=== PATIENT | female | born 1985 | race Caucasian/White ===

== ENCOUNTER 2016-09-06 03:18 | Day surgery (SDC) | payer BC, OTHER ==
[2016-09-06] MEDS ORDERED: PROMETHAZINE HCL 25 MG/ML AMPUL IM ONE (05:57)
[2016-09-06] MEDS ORDERED: NALBUPHINE HCL 20 MG/ML AMPUL IV ONE (06:02)
[2016-09-06] MEDS ORDERED: PROMETHAZINE HCL 25 MG/ML AMPUL ONE (06:17)
[2016-09-06] MEDS ORDERED: NALBUPHINE HCL 20 MG/ML AMPUL ONE (06:17)
[2016-09-06 06:23] LABS: Hematocrit 36.8 % (37.0-47.0); Hemoglobin 12.1 gm/dL (12.5-16.0); Mean Cell Volume 81.8 fl (78-100); Mean Corpuscular Hemoglobin 26.9 pg (27-31); Mean Corpuscular Hgb Conc 32.9 g/dl (32-36); Mean Platelet Volume 9.7 fl (6.0-9.5); Neutrophil # 3.6 K/mm3 (1.3-6.0); Neutrophil % 52.3 % (42-75.0); Platelet Count 262 K/mm3 (150-450); Red Cell Distribution Width 14.5 % (11.5-14.0); White Blood Count 6.9 K/mm3 (4.0-10.5)
[2016-09-06 06:37] LABS: Albumin * 4.2 gm/dl (3.4-5.0); Anion Gap 12.3 mmol/L (6.8-13.8); BUN/Creatinine Ratio 12.9 (9.0-21.6); Bilirubin, Total 0.4 mg/dL (0.0-1.1); Ca. Corrected For Albumin 9.1 mg/dL (8.4-10.2); Calcium * 9.6 mg/dL (7.9-10.9); Potassium 3.3 mmol/L (3.4-4.6); Total Protein 8.3 gm/dL (6.2-8.2)
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
[2016-09-06] MEDS ORDERED: RINGERS SOLUTION,LACTATED 1,000 ML IV ONE ×3 (08:20→10:10)
--- OUTSIDE RECORDS SUMMARY | 2016-09-06 08:38 | XMS REPORT | Summary of Care ---
:[address] [facility] Address [address] [place] [address] Care Team Providers Name Role Phone Gumaro Pitt Primary Care Physician Encounter Date(s): 07/13/16 - 07/13/16 [facility], [address] [place], [place] [address] Discharge Disposition: 01 Discharged to Home or Self Care Attending Physician: Bhavani Tavares DO Referring Physician: Bhavani Tavares DO Vital Signs Most recent to oldest [Reference Range]: 1 Peripheral Pulse Rate [60-100 bpm] 81 bpm (07/13/16 1:16 PM) Blood Pressure [90-130/60-90 mmHg] 124/79mmHg (07/13/16 1:16 PM) Mean Arterial Pressure, Cuff 94 mmHg (07/13/16 1:16 PM) Most recent to oldest [Reference Range]: 1 Height/Length Measured 160 cm (07/13/16 1:16 PM) Weight Dosing 85.90 kg1 (07/13/16 1:23 PM) Weight Measured 85.9 kg (07/13/16 1:16 PM) BSA Measured 1.89 m2 (07/13/16 1:16 PM) Body Mass Index Measured 33.55 kg/m2 (07/13/16 1:16 PM) 1Result Comment: This result was because the dosing weight was either not entered or it is>30 days old. This result is based off: Weight Measured July 13, 2016 13:16:00 LEAD RECREATION ASSISTANT by Fabiola Merritt Overlock Sleeve Setter Problem List Condition Effective Dates Status Health Status Informant Chronic female pelvic Active pain(Confirmed) Depression(Confirmed) Active (Confirmed) < 2006 Resolved (Confirmed) 08/13/12 - 2013 Resolved (Confirmed) 08/13/06 - 2007 Resolved (Confirmed) 08/13/082009 Resolved PTSD (post-traumatic stress Active disorder)(Confirmed) Allergies, Adverse Reactions, Alerts Substance Reaction Severity Status gabapentin hives Severe Active ketamine Feel funny Active NSAIDs Hives Active Toradol Itching Active traMADol hives Severe Active Medications ALPRAZolam 0.5 mg oral tablet 1 tab(s), Oral, TID, PRN as needed for anxiety, Start Date: 07/10/16 11:37:00 LEAD RECREATION ASSISTANT Start Date: 07/10/16 Status: OrderedFLUoxetine 20 mg oral capsule 3 cap(s), Oral, qAM, Start Date: 06/04/16 17:41:00 LEAD RECREATION ASSISTANT Start Date: 06/04/16 Status: Orderedhydrocodone-acetaminophen 5mg-325mg oral tablet 1 tab(s), Oral, q4hr, X 5 days, # 15 tab(s), 0 Refill(s), Start Date: 07/10/16 12:26:00 LEAD RECREATION ASSISTANT Start Date: 07/10/16 Stop Date: 07/15/16 Status: OrderedhydrOXYzine pamoate 50 mg oral capsule 1 cap(s), Oral, TID, PRN as needed for anxiety, Start Date: 06/04/16 17:41:00 LEAD RECREATION ASSISTANT Start Date: 06/04/16 Status: Orderedibuprofen 800 mg oral tablet 1 tab(s), Oral, TID, scheduled dose, Start Date: 06/04/16 17:41:00 LEAD RECREATION ASSISTANT Special Instructions: scheduled dose Start Date: 06/04/16 Status: OrderedKeppra 500 mg oral tablet 1 tab(s), Oral, BID, # 60 tab(s), 0 Refill(s), Start Date: 06/04/16 17:36:00 LEAD RECREATION ASSISTANT Start Date: 06/04/16 Status: OrderedLyrica 150 mg oral capsule 1 cap(s), Oral, BID, Start Date: 06/04/16 17:41:00 LEAD RECREATION ASSISTANT Start Date: 06/04/16 Status: OrderedOLANZapine 15 mg oral tablet 1 tab(s), Oral, Daily, Start Date: 06/04/16 17:41:00 LEAD RECREATION ASSISTANT Start Date: 06/04/16 Status: OrderedoxyCODONE Oral, 0 Refill(s), Start Date: 07/13/16 13:38:00 LEAD RECREATION ASSISTANT Start Date: 07/13/16 Status: Orderedzolpidem 10 mg oral tablet 1 tab(s), Oral, HS, PRN for sleep, Start Date: 06/04/16 17:41:00 LEAD RECREATION ASSISTANT Start Date: 06/04/16 Status: Ordered Results No data available for this section Immunizations No data available for this section Procedures Procedure Date Related Diagnosis Body Site Miscellaneous operations1 06/2014 Appendectomy 05/2014 section 2013 Tonsillectomy 2011 section 2009 section 2007 1Scar tissue removal Social History No data available for this section Assessment and Plan No data available for this section
--- OUTSIDE RECORDS SUMMARY | 2016-09-06 08:38 | XMS REPORT | Continuity of Care Document ---
:1985 Author Organization [facility] ([facility]) Address [address] [place] [address] Phone [phone] Care Team Providers Name Role Phone Gumaro Pitt Primary Care Provider [phone] Source Comments This disclosure is being made pursuant to the Care Everywhere program, applicable federal and state laws, and may not contain all informaitonavailable regarding this patient.[facility] ([facility]) Active Allergies and Adverse Reactions Allergen Noted Date Severity Reactions Comments Gabapentin 03/08/2015 Rash Ibuprofen 03/08/2016 Rash Ketamine 03/08/2016 OTHER "Freaks Out" Ketorolac 03/08/2016 OTHER Burning sensation Tramadol 06/27/2015 Urticaria (Hives) Current Medications Prescription Sig. Disp. Refills Start Date End Date Status zolpiDEM (AMBIEN) 10 Take 10 mg by Active mg tablet mouth at bedtime. pregabalin (LYRICA) Take 300 mg by Active 300 mg capsule mouth 2 times daily. cetirizine 10 mg Take 10 mg by 03/06/2016 Active tablet mouth at bedtime. FLUoxetine 20 mg Take 60 mg by 03/06/2016 Active capsule mouth daily. LORazepam 1 mg tablet Take 1 mg by mouth 03/06/2016 Active 3 times daily. polyethylene glycol Take 17 g by mouth 03/06/2016 Active 3350 17 gram packet daily. dextroamphetamine-amp Take 1 tablet (20 60 tablet 0 03/12/2016 Active hetamine 20 mg tablet mg total) by mouth every morning and at noon. oxyCODONE-acetaminoph Take 1 tablet by 180 tablet 0 03/13/2016 Active en 5-325 mg per mouth every 4 tablet hours as needed. pain mupirocin 2 % Apply topically 2 30 g 0 03/16/2016 Active ointment times daily. zinc oxide 20 % Apply topically as 56 g 0 03/16/2016 Active ointment needed. ALPRAZolam 0.5 mg XR TK 1 T PO BID PRN 1 07/13/2016 Active tablet Active Problems Problem Noted Date Borderline personality disorder 03/08/2016 Moderate episode of recurrent major depressive disorder 02/28/2016 Terminal ileitis without complication 10/21/2015 Lower abdominal pain 10/21/2015 Anemia 10/21/2015 Seizure 07/01/2015 Pelvic pain 03/08/2015 Chronic constipation 09/29/2014 Pelvic adhesive disease 09/27/2014 PTSD (post-traumatic stress disorder) 06/05/2014 ADHD (attention deficit hyperactivity disorder), combined type 06/05/2014 Chronic pain 01/21/2014 Hx of section x3 01/04/2014 Resolved Problems Problem Noted Date Resolved Date Flank pain 01/10/2014 08/31/2014 Hydroureter, right 01/04/2014 01/21/2014 endometritis 01/03/2014 01/06/2014 Leukocytosis 01/03/2014 01/21/2014 Status post 01/03/2014 08/31/2014 Most Recent Encounters Date Type Specialty Providers Description 07/16/2016 - Hospital Encounter Emergency Medicine Bharathi Benavides Dx: Cellulitis of 07/17/2016 MD Nubia right foot (Primary Dx) 07/16/2016 Office Visit Gynecology Yari Gunter Dx: Non-intractable DO vomiting without nausea, unspecified vomiting type (Primary Dx) 07/16/2016 Pharmacy Visit 07/10/2016 Telephone Gynecology Sarmiento, Kayli Ascencio MD Chief Comp: Patient Concern 07/09/2016 Hospital Encounter Emergency Medicine Dx: Syncope and collapse (Primary Dx) 07/09/2016 Telephone Gynecology Sarmiento, Kayli Ascencio MD Chief Comp: Patient Concern Immunizations Name Dates Previously Given Next Due Influenza, quadrivalent PF 03/09/2015 Social History Tobacco Use Types Packs/Day Years Used Date Former Smoker Cigarettes 0.25 2 Smokeless Tobacco: Never Used Tobacco Cessation:Counseling Given: Yes Comments: Alcohol Use Drinks/Week oz/Week Comments Yes 0 Standard drinks or equivalent 0.0 rarely Last Filed Vital Signs Vital Sign Reading Time Taken Blood Pressure 128/96 07/16/2016 6:16 PM SPAR CAP BEVELER Pulse 104 07/16/2016 6:16 PM SPAR CAP BEVELER Temperature 36.5 C (97.7 F) 07/16/2016 6:16 PM SPAR CAP BEVELER Respiratory Rate 16 07/16/2016 6:16 PM SPAR CAP BEVELER Height 1.6 m (5' 3") 10/21/2015 4:49 AM CDT Weight 83 kg (182 lb 15.7 oz) 07/16/2016 4:22 PM SPAR CAP BEVELER Body Mass Index 32.42 07/16/2016 4:22 PM SPAR CAP BEVELER Oxygen Saturation 100% 07/16/2016 6:16 PM SPAR CAP BEVELER Plan of Care Date Type Specialty Providers Description 10/03/2016 Appointment Gynecology Karla Adams MD Chief Comp: Patient [address] [place] [address] [phone] (Fax) Health Maintenance Due Date Last Done Comments Hepatitis B Vaccine (1 of 3 - Primary Series) 1985 Tdap Vaccine 09/05/1998 Cervical Cancer Screening 09/05/2005 Lipid Disorder Screening 09/05/2005 MMR Vaccine 09/05/2005 Td Vaccine 09/05/2005 Varicella Vaccine (1 of 2 - Adult - No Evidence of 09/05/2005 Immunity) Influenza Vaccine: Seasonal (Season Ended) 2016 03/09/2015 Results from Last 3 Months MICROSCOPIC URINALYSIS (07/16/2016 11:36 PM) Component Value Range White Blood Cells, Urine 1 0-5 /HPF Red Blood Cells, Urine 4(H) 0-2 /HPF Bacteria, Urine Rare(A) /HPF Squamous Epithelial Cells, Urine 394(H) <=10 /LPF Calcium Oxalate Crystals, Urine 1 <5 /HPF Mucous-Urine Many(A) None, Rare Amorphous Sediment-Urine Few(A) None, Rare Specimen Urine URINALYSIS WITH REFLEX CULTURE (07/16/2016 11:36 PM) Component Value Range Color, Urine Straw Straw, Pale Yellow, Yellow, Clear, None Clarity, Urine Cloudy(A) Clear pH, Urine 6.0 <9.0 Spec [place], Urine 1.025 1.000-1.030 Glucose, Urine Negative Negative Blood, Urine Negative Negative Ketones, Urine 2+(A) Negative Protein, Urine 1+(A) Negative Urobilinogen, Urine 1+(A) Normal Bilirubin, Urine Negative Negative Leukocyte Esterase, Urine Negative Negative Nitrite, Urine Negative Negative Specimen Urine URINALYSIS WITH REFLEXED CULTURE AND MICROSCOPIC EXAM (07/16/2016 11:36 PM) Specimen Culture - Urine, Midstream clean catch Narrative The following orders were created for panel order URINALYSIS WITH REFLEXED CULTURE AND MICROSCOPIC EXAM. Procedure Abnormality Status --------- ------ URINALYSIS WITH REFLEX C...[[id number]]AbnormalFinal result MICROSCOPIC URINALYSIS[[id number]] Abnormal Final result URINE CULTURE, REFLEXED[[id number]] Please view results for these tests on the individual orders. DIFFERENTIAL (07/16/2016 8:26 PM)Only the most recent of2 resultswithin the time period is included. Component Value Range % Neutrophils-Auto Diff 67.5 % Neutrophils-Auto Diff 6870 6829-4048 /MM3 % Lymphocytes-Auto Diff 23.1 % Lymphocytes-Auto Diff 2350 875-3300 /MM3 % Monocytes-Auto Diff 7.3 % Monocytes-Auto Diff 740 130-860 /MM3 % Eosinophils-Auto Diff 1.3 % Eosinophils-Auto Diff 130 40-390 /MM3 % Basophils 0.4 % Basophils-Auto Diff 40 10-136 /MM3 % Immature Granulocytes-Auto Diff 0.4 % Immature Granulocytes-Auto Diff 40 /MM3 Specimen Whole Blood CBC (COMPLETE BLOOD COUNT) (07/16/2016 8:26 PM)Only the most recent of2 resultswithin the time period is included. Component Value Range WBC Count 10.2 3.7-10.5 K/MM3 RBC Count 4.29 4.00-5.20 M/MM3 Hemoglobin 11.3(L) 11.9-15.5 g/dL Hematocrit 34(L) 35-47 % MCV (Mean Corpuscular Volume) 79(L) 82-99 FL MCH (Mean Corpuscular Hemoglobin) 26 25-35 PG MCHC (Mean Corpuscular Hemoglobin Concentration) 33 32-36 % Platelet Count 270 150-400 K/MM3 MPV (Mean Platelet Volume) 9.6 9.4-12.3 FL RBC Dist Width-STD 36.9 36.4-46.3 FL RBC Distrib Width 13.2 9.0-14.5 % Nucleated RBC 0 /100 WBC Specimen Whole Blood BASIC METABOLIC PANEL W/ CALCIUM (CHEM 8) (07/16/2016 8:26 PM) Component Value Range Sodium 142 135-145 mEq/L Potassium 3.1(L) 3.5-5.0 mEq/L Chloride 102 95-107 mEq/L CO2 26 22-29 mEq/L Anion Gap 14 8-18 mEq/L BUN 6(L) 10-20 mg/dL Creatinine 0.7Comment: 0.5-1.0 mg/dL Creatinine switched to enzymatic method on 09/26/2010.GFR equation switched to IDMS-traceable MDRD equation on 09/26/2010. Calculated GFR values are not valid in clinical settings where serum creatinine is changing. Glucose 106(H)Comment: 65-99 mg/dL The Expert Committee on the Diagnosis and Classification of Diabetes has defined impaired fasting glucose as greater than or equal to 100 mg/dL but less than 126 mg/dL.(Diabetes Care 28 (Suppl 1)S41,2005) Calcium 9.8 8.5-10.5 mg/dL Calculated GFR >90 >60 mL/min/1.73 m2 Specimen Blood CBC WITH DIFFERENTIAL (07/16/2016 8:26 PM)Only the most recent of2 resultswithin the time period is included. Specimen Whole Blood Narrative The following orders were created for panel order CBC WITH DIFFERENTIAL. Procedure Abnormality Status --------- ------ CBC (COMPLETE BLOOD COUNT)[[id number]] AbnormalFinal result DIFFERENTIAL[[id number]] Final result Please view results for these tests on the individual orders. TUBULAR PRODUCTS FABRICATOR ULTRASOUND (07/09/2016 7:12 PM) Narrative Gynecology Report Referral from: [facility], [id number] PATIENT INFORMATION: Name: MARISSA ANSARI#: [id number] Age:30 y/oExam Date: 07/09/2016 :1985 Location: After hours TUBULAR PRODUCTS FABRICATOR LMP:Not Available Approach:Transvaginal. INDICATION:Pelvic pain. Rule out fibroid, ovarian cyst or torsion. UTERUS Uterus:Non gravid.Size:L-89mm W-36mm H -60mm Vol:101mL. Position: Retroflexed. Anomalies: Arcuate. Pathology: No. ENDOMETRIUM Double Thickness:4.5mm. Texture: Hyperechoic. CERVIX Cervix:Visualized. Appearance:Appears normal. OVARIES Ovaries: Left: Appears normal. L-32mm W-29mm H-25mm Vol:11.9mL Right: Appears normal. L-23mm W -20mm H-20mm Vol:4.67mL Left Findings: Follicle. Right Findings:Follicle. Left Impression: Normal. Right Impression:Hemorrhagic cyst. CUL DE SAC Cul de Sac Fluid:Not Seen. COMMENTS: The uterus is retroflexed, normal in size and arcuate in shape with no myomas. The edometrium is hyperechoic and thin with a small amount of fluid noted within the cavity. The right ovary is unremarkable with appropriate blood flow and a probable hemorrhagic corpus luteum measuring 16 x 13 mm. The left ovary is unremarkable with appropriate blood flow noted. There is no free fluid in the cul de sac. Dr. Zaida Huff MD ([id number]) Mixer Blender: Yashira Shah RDMS, RVT Procedure Note Ever, Incoming Imaging Results - SatJul 11, 2016 1:44 PM SPAR CAP BEVELER Gynecology Report Referral from: [place] [address] PATIENT INFORMATION: Name: MARISSA DE DIOS MR#: [id number] Age: 30 y/o Exam Date: 07/09/2016 : 1985 Location: After hours TUBULAR PRODUCTS FABRICATOR LMP: Not Available Approach: Transvaginal. INDICATION: Pelvic pain. Rule out fibroid, ovarian cyst or torsion. UTERUS Uterus: Non gravid. Size: L-89mm W-36mm H-60mmVol:101mL. Position: Retroflexed. Anomalies: Arcuate. Pathology: No. ENDOMETRIUM Double Thickness: 4.5mm. Texture: Hyperechoic. CERVIX Cervix: Visualized. Appearance: Appears normal. OVARIES Ovaries: Left: Appears normal. L-32mm W-29mm H-25mm Vol:11.9mL Right: Appears normal. L-23mm W-20mm H-20mm Vol:4.67mL Left Findings: Follicle. Right Findings: Follicle. Left Impression: Normal. Right Impression: Hemorrhagic cyst. CUL DE SAC Cul de Sac Fluid: Not Seen. COMMENTS: The uterus is retroflexed, normal in size and arcuate in shape with no myomas. The edometrium is hyperechoic and thin with a small amount of fluid noted within the cavity. The right ovary is unremarkable with appropriate blood flow and a probable hemorrhagic corpus luteum measuring 16 x 13 mm. The left ovary is unremarkable with appropriate blood flow noted. There is no free fluid in the cul de sac. Dr. Zaida Huff MD ([id number]) Mixer Blender: Yashira Shah RDMS, RVT NEISSERIA GONORRHOEAE PCR (07/09/2016 6:23 PM) Component Value Range Gonorrhea PCR Negative Negative Specimen Other - Endocervical Narrative Test methodology:PCR amplification; CT/NG Assay ([employer]) CHLAMYDIA TRACHOMATIS DETECTION BY PCR (07/09/2016 6:23 PM) Component Value Range Chlamydia Trach PCR Negative Negative Specimen Other - Endocervical Narrative Test methodology:PCR amplification; CT/NG Assay ([employer]) VAGINOSIS/VAGINITIS PANEL (TRICHOMONAS, YEAST AND GARDNERELLA) (07/09/2016 6: 23 PM) Component Value Range Trichomonas vaginalis Not Detected Not Detected, Indeterminate [place] species Not Detected Not Detected, Indeterminate Gardnerella vaginalis Detected(A) Not Detected, Indeterminate Specimen Vaginal - Vagina THC-URINE SCREEN (07/09/2016 5:14 PM) Component Value Range THC, Urine NegativeComment: Negative Test-cut off:50 ng/mL Drug of abuse screening tests are to be used for medical purposes only and not for non-medical purposes (e.g., employee or forensic testing). Specimen Urine DRUGS OF ABUSE - URINE (07/09/2016 5:14 PM) Component Value Range Amphetamines, Urine NegativeComment: Negative Test cut-off: 1000 ng/mL for d-methamphetamine. Benzodiazepine, Urine Presumptive Positive(A)Comment: Negative Test cut-off:100 ng/mL Cocaine, Urine NegativeComment: Negative Test cut-off:300 ng/mL Opiate, Urine NegativeComment: Negative Test cut-off:300 ng/mL for morphine Oxycodone, Urine NegativeComment: Negative Test cut-off:300 ng/mL Amphetamines assay cross-reacts well with amphetamine and methamphetamine, as well as the "toy designer" amphetamines MDMA ("Ecstasy"), MDA, MDEA ("Daphney"), and MBDB. Labetalol may also produce false positi ves due to cross-reactivity of a metabolite.The amphetamines assay has little or no cross-reactivity with ephedrine, pseudoephedrine, phentermine, and methylphenidate. Opiates assay has low cross-reac tivity for buprenorphine, fentanyl, meperidine, methadone, oxycodone, and propoxyphene (all have cut-offs greater than 75,000 ng/mL). Please see Laboratory Services Handbook ([email or web address]_ [email or web address].[email or web address].html) for more detailed information on assay cross-reactivity. Drug of abuse screening tests are to be used for medical purposes only and not for non-medical purposes (e.g., employee, quality assurance supervisor final, or forensic testing). Specimen Urine KEPPRA (LEVETIRACETAM) DRUG LEVEL (07/09/2016 5:12 PM) Component Value Range Levetiracetam (Keppra) Drug Level <2.0(L) 5.0-30.0 g/mL Specimen Blood LACTIC ACID, WHOLE BLOOD ([facility]) (07/09/2016 5:12 PM) Component Value Range Lactic Acid, Whole Blood 1.0Comment: 0.5-2.0 mEq/L Glycolate, the principle toxic metabolite of ethylene glycol, can cause artifactual elevation of measured lactate. Specimen Whole Blood HCG - , SERUM, QUANTITATIVE (07/09/2016 5:12 PM) Component Value Range Screen, Quantitative, Blood <2Comment: mIU/mL This assay recognizes the intact HCG "holo-hormone" produced in but may not recognize other forms of HCG (e.g., "nicked HCG") produced in other conditions such as tumors of the germs cells, ovaries, bladder, pancreas, stomach, lungs, and liver. QUANTITATIVE HCG Weeks of gestation Expected range mIU/mL 3 weeks5 - 72 4 weeks 10 - 708 5 [id number] - 8, 245 6 - 32, 177 7 weeks 4,059 - 153, 767 8 weeks31,366 - 149, 094 9 weeks59,109 - 135, 901 10 weeks 44,186 - 170, 409 12 weeks 27,107 - 201, 165 14 weeks 24,302 - 93,646 15 weeks 12,540 - 69,747 16 weeks 8,904 - 55, 332 17 weeks 8,240 - 51, 793 18 weeks 9,649 - 55, 271 Non- females:< 3 mIU/mL Males: < 2 mIU/mL Healthy non- gerda-menopausal and post-menopausal females may have HCG values up to 8 mIU/mL.Heterophile antibodies present in the serum of some patients may cause a false positive result in this assay. Specimen Blood ETHANOL, PLASMA (07/09/2016 5:12 PM) Component Value Range Ethanol 0Comment: mg/dL Reference range: None detected. Ethanol intoxication typically begins in the 50-100 mg/dL range. Critical value: >300 mg/dL. Ethanol values less than 10 mg/dL cannot be distinguished from zero. Specimen Blood PTT (PARTIAL THROMBOPLASTIN TIME) (07/09/2016 5:12 PM) Component Value Range PTT 24 22-31 secs Specimen Blood PT/INR (PROTHROMBIN TIME/INR) VENOUS (07/09/2016 5:12 PM) Component Value Range PT (Prothrombin Time) 11 9-12 secs INR 1.1 <4.0 Specimen Blood THYROID STIMULATING HORMONE (TSH), WITH REFLEX FREE T-4 (07/09/2016 5:12 PM) Component Value Range TSH, Reflex 2.18 0.27-4.20 IU/mL Specimen Blood COMPREHENSIVE METABOLIC PANEL (CMP) (07/09/2016 5:12 PM) Component Value Range Sodium 144 135-145 mEq/L Potassium 3.4(L) 3.5-5.0 mEq/L Chloride 103 95-107 mEq/L CO2 28 22-29 mEq/L Anion Gap 13 8-18 mEq/L BUN 8(L) 10-20 mg/dL Creatinine 0.9Comment: 0.5-1.0 mg/dL Creatinine switched to enzymatic method on 09/26/2010.GFR equation switched to IDMS-traceable MDRD equation on 09/26/2010. Calculated GFR values are not valid in clinical settings where serum creatinine is changing. Glucose 88Comment: 65-99 mg/dL The Expert Committee on the Diagnosis and Classification of Diabetes has defined impaired fasting glucose as greater than or equal to 100 mg/dL but less than 126 mg/dL.(Diabetes Care 28 (Suppl 1)S41,2005) Calcium 9.4 8.5-10.5 mg/dL Total Protein 7.7 6.0-8.0 g/dL Albumin 4.4 3.4-4.8 g/dL AST 16Comment: 0-32 U/L Adult reference ranges updated on 04/14/13 at 830am ALP 98 35-104 U/L Bilirubin Total 0.4 <=1.2 mg/dL ALT 14Comment: 0-33 U/L The upper limit of normal for alanine aminotransferase (ALT) reference ranges for adults is controversial with some authorities recommending limit as low as 30 U/L for males and 19 U/L for females. Th ere is increased incidence of subclinical liver disease (e.g., early steatohepatitis) in patients with ALT values in the range of 31-41 U/L for males and 20-33 U/L for females. ALT values should alway s be interpreted in conjunction with clinical history, physical examination findings, and, if applicable, data from other diagnostic tests. Calculated GFR 75 >60 mL/min/1.73 m2 Specimen Blood MAGNESIUM (07/09/2016 5:12 PM) Component Value Range Magnesium 2.2 1.5-2.9 mg/dL Specimen Blood BLOOD BANK SAMPLE HOLD (07/09/2016 5:12 PM) Component Value Range Blood Bank Sample Hold Hold Specimen Specimen Blood, unspecified source ECG - EKG 12 LEAD (07/09/2016 3:30 PM) Component Value Range ECG SEVERITY - BORDERLINE ECG - VENT. RATE 78 bpm RR 769 ms P-R INTERVAL 180 ms QRSD INTERVAL 82 ms QT INTERVAL 376 ms QTC INTERVAL 429 ms P AXIS 31 degrees QRS AXIS 42 degrees T WAVE AXIS 27 degrees REPORT SINUS RHYTHM BORDERLINE T ABNORMALITIES, ANTERIOR LEADS Interpreting Physician: Ramesh Herring MD
--- OUTSIDE RECORDS SUMMARY | 2016-09-06 08:39 | XMS REPORT | Summary of Care ---
:1985 Author Organization [facility] Address [address] [place] [address]- Care Team Providers Name Role Phone uGmaro Pitt Primary Care Physician Encounter Date(s): 06/11/16 - 06/11/[address] [address] Discharge Disposition: 01 Discharged to Home or Self Care Attending Physician: Leland Talley DO Admitting Physician: Leland Talley DO Vital Signs No data available for this section Problem List No data available for this section Allergies, Adverse Reactions, Alerts Substance Reaction Severity Status gabapentin hives Severe Active traMADol hives Severe Active Medications FLUoxetine 20 mg oral capsule 3 cap(s), Oral, qAM, Start Date: 06/04/16 17:41:00 METAL PATTERNMAKER APPRENTICE Start Date: 06/04/16 Status: OrderedhydrOXYzine pamoate 50 mg oral capsule 1 cap(s), Oral, TID, PRN as needed for anxiety, Start Date: 06/04/16 17:41:00 METAL PATTERNMAKER APPRENTICE Start Date: 06/04/16 Status: Orderedibuprofen 800 mg oral tablet 1 tab(s), Oral, TID, scheduled dose, Start Date: 06/04/16 17:41:00 METAL PATTERNMAKER APPRENTICE Start Date: 06/04/16 Status: OrderedKeppra 500 mg oral tablet 1 tab(s), Oral, BID, # 60 tab(s), 0 Refill(s), Start Date: 06/04/16 17:36:00 METAL PATTERNMAKER APPRENTICE Start Date: 06/04/16 Status: OrderedLyrica 150 mg oral capsule 1 cap(s), Oral, BID, Start Date: 06/04/16 17:41:00 METAL PATTERNMAKER APPRENTICE Start Date: 06/04/16 Status: OrderedOLANZapine 15 mg oral tablet 1 tab(s), Oral, Daily, Start Date: 06/04/16 17:41:00 METAL PATTERNMAKER APPRENTICE Start Date: 06/04/16 Status: Orderedzolpidem 10 mg oral tablet 1 tab(s), Oral, HS, PRN for sleep, Start Date: 06/04/16 17:41:00 METAL PATTERNMAKER APPRENTICE Start Date: 06/04/16 Status: Ordered Results No data available for this section Immunizations No data available for this section Procedures No data available for this section Social History No data available for this section Assessment and Plan No data available for this section
--- OUTSIDE RECORDS SUMMARY | 2016-09-06 08:39 | XMS REPORT | Continuity of Care Document ---
:1985 Author [employer] [facility] [place] [address] Phone [phone] Care Team Providers Name Role Phone YoandyGumaro Primary Care Provider [phone] Active Allergies and Adverse Reactions Allergen Noted Date Severity Reactions Comments Gabapentin 02/06/2016 Hives Toradol 02/06/2016 High burning Tramadol 02/06/2016 Hives Current Medications Always verify current medications with the patient because some medications mayno longer be current as of this document. Prescription Sig. Disp. Refills Start Date End Date Status oxyCODONE-acetaminophe Take 1 Tab by mouth 28 Each 0 03/06/2016 Active n (PERCOCET) 5-325 MG every 6 hours as per tablet needed. Indications: moderate to severe pain acetaminophen Take 2 Tabs by mouth 30 Tab 0 03/06/2016 Active (TYLENOL) 325 MG every 6 hours as tablet needed. Indications: Fever, Pain LORazepam (ATIVAN) 1 Take 1 Tab by mouth 21 Each 0 03/06/2016 Active MG tablet 3 times daily as needed for Anxiety. Indications: moderate to severe anxiety pregabalin (LYRICA) 75 Take 4 Caps by mouth 56 Cap 0 03/06/2016 Active MG capsule 2 times daily. Indications: Neuropathic Pain FLUoxetine (PROZAC) 20 Take 3 Caps by mouth 90 Cap 0 03/06/2016 Active MG capsule daily. Indications: Depression cetirizine (ZYRTEC) 10 Take 1 Tab by mouth 30 Tab 12 03/06/2016 Active MG tablet nightly. Indications: Skin Reaction, Hives diphenhydrAMINE Take 1 Tab by mouth 30 Tab 0 03/06/2016 Active (BENADRYL) 25 MG every 6 hours as tablet needed for Itching. Indications: Mild Uncomplicated Hives, Itching bacitracin ointment topically thin layer 1 Tube 0 03/06/2016 Active bid for superficial skin infection Indications: skin infection mineral topically bid to dry 03/06/2016 Active oil-hydrophilic skin as needed petrolatum (AQUAPHOR) ointment zolpidem (AMBIEN) 10 Take 1 Tab by mouth 30 Each 0 03/06/2016 Active MG tablet nightly. Indications: Trouble Sleeping polyethylene glycol Take 17 g by mouth 0 03/06/2016 Active (GLYCOLAX) packet daily. Indications: Constipation amphetamine-dextroamph one po 8am and 1230 60 Tab 0 03/06/2016 Active etamine (ADDERALL) 10 pm Indications: MG tablet Attention Deficit Disorder Active Problems Problem Noted Date Major depressive disorder 02/28/2016 PTSD (post-traumatic stress disorder) 02/06/2016 Immunizations Name Dates Previously Given Next Due (3 Years +) Influenza Vacc Quadrivalent Preservative 02/06/2016 Free(PREFILLED / SDV) PPD Test 02/20/2016 Social History Tobacco Use Types Packs/Day Years Used Date Never Assessed Last Filed Vital Signs Vital Sign Reading Time Taken Blood Pressure 110/76 03/06/2016 6:00 AM CDT Pulse 84 03/06/2016 6:00 AM CDT Temperature 36.6 C (97.9 F) 03/06/2016 6:00 AM CDT Respiratory Rate 16 03/06/2016 6:00 AM CDT Height 1.6 m (5' 3") 02/06/2016 2:17 AM CDT Weight 72.757 kg (160 lb 6.4 oz) 03/01/2016 6:00 AM CDT Body Mass Index 28.42 03/01/2016 6:00 AM CDT Oxygen Saturation - - Plan of Care Health Maintenance Due Date Last Done [facility]1 - [facility]ap[facility] 09[facility]05/2006 [facility] Cerv[facility] Scre[facility] 09/05/2008 [facility] Influenza 12/18/2016 02/06/2016 [facility] Zoster (#1) 2047 Results from Last 3 Months Not on file
--- OUTSIDE RECORDS SUMMARY | 2016-09-06 08:39 | XMS REPORT | Summary of Care ---
:1985 Author Organization [facility] Address [address] [place] [address]- Care Team Providers Name Role Phone Gumaro Pitt Primary Care Physician Encounter Date(s): 07/10/16 - 07/10/16 [facility] [address] [place] [address]- [facility] Discharge Diagnosis: Chronic female pelvic pain Discharge Disposition: Discharged to Home or Self Care Attending Physician: Evert Gaitan MD Admitting Physician: Evert Gaitan MD Vital Signs Most recent to oldest 1 2 3 [Reference Range]: Temperature Temporal Artery 37.2 DegC [36.0-38.0 DegC] (07/10/16 10:56 AM) Heart Rate Monitored [60-100 66 bpm 50 bpm 60 bpm bpm] (07/10/16 1:30 PM) *LOW* (07/10/16 12:30 PM) (07/10/16 1:00 PM) Respiratory Rate [12-20 17 br/min 14 br/min 17 br/min br/min] (07/10/16 1:30 PM) (07/10/16 1:00 PM) (07/10/16 12:30 PM) SpO2 [90-100 %] 81 % 93 % 93 % *<LLOW* (07/10/16 1:00 PM) (07/10/16 12:30 PM) (07/10/16 1:30 PM) Blood Pressure [90-130/60-90 127/75mmHg 124/63mmHg 124/63mmHg mmHg] (07/10/16 1:00 PM) (07/10/16 12:30 PM) (07/10/16 12:00 PM) Mean Arterial Pressure 88 mmHg 78 mmHg 78 mmHg Monitor Measure (07/10/16 1:00 PM) (07/10/16 12:30 PM) (07/10/16 12:00 PM) Most recent to oldest [Reference Range]: 1 2 3 Weight Estimated 82 kg (07/10/16 10:56 AM) Weight Dosing 82.00 kg1 (07/10/16 11:00 AM) 1Result Comment: This result was because the dosing weight was either not entered or it is>30 days old. This result is based off: Weight Estimated July 10, 2016 10:56:00 CLOUD SYSTEMS ARCHITECT by Yaneth Villar RN Problem List Condition Effective Dates Status Health Status Informant Chronic female pelvic pain(Confirmed) Active Allergies, Adverse Reactions, Alerts Substance Reaction Severity Status gabapentin hives Severe Active NSAIDs Hives Active traMADol hives Severe Active Medications ALPRAZolam 0.5 mg oral tablet 1 tab(s), Oral, TID, PRN as needed for anxiety, Start Date: 07/10/16 11:37:00 CLOUD SYSTEMS ARCHITECT Start Date: 07/10/16 Status: OrderedFLUoxetine 20 mg oral capsule 3 cap(s), Oral, qAM, Start Date: 06/04/16 17:41:00 CLOUD SYSTEMS ARCHITECT Start Date: 06/04/16 Status: Orderedhydrocodone-acetaminophen 5mg-325mg oral tablet 1 tab(s), Oral, q4hr, X 5 days, # 15 tab(s), 0 Refill(s), Start Date: 07/10/16 12:26:00 CLOUD SYSTEMS ARCHITECT Start Date: 07/10/16 Stop Date: 07/15/16 Status: OrderedhydrOXYzine pamoate 50 mg oral capsule 1 cap(s), Oral, TID, PRN as needed for anxiety, Start Date: 06/04/16 17:41:00 CLOUD SYSTEMS ARCHITECT Start Date: 06/04/16 Status: Orderedibuprofen 800 mg oral tablet 1 tab(s), Oral, TID, scheduled dose, Start Date: 06/04/16 17:41:00 CLOUD SYSTEMS ARCHITECT Special Instructions: scheduled dose Start Date: 06/04/16 Status: OrderedKeppra 500 mg oral tablet 1 tab(s), Oral, BID, # 60 tab(s), 0 Refill(s), Start Date: 06/04/16 17:36:00 CLOUD SYSTEMS ARCHITECT Start Date: 06/04/16 Status: OrderedLyrica 150 mg oral capsule 1 cap(s), Oral, BID, Start Date: 06/04/16 17:41:00 CLOUD SYSTEMS ARCHITECT Start Date: 06/04/16 Status: OrderedOLANZapine 15 mg oral tablet 1 tab(s), Oral, Daily, Start Date: 06/04/16 17:41:00 CLOUD SYSTEMS ARCHITECT Start Date: 06/04/16 Status: Orderedzolpidem 10 mg oral tablet 1 tab(s), Oral, HS, PRN for sleep, Start Date: 06/04/16 17:41:00 CLOUD SYSTEMS ARCHITECT Start Date: 06/04/16 Status: Ordered Results Patient Viewable Results Most recent to oldest [Reference Range]: 1 WBC [4.8-10.8 thou/mm3] 7.6 thou/mm3 (07/10/16 11:55 AM) RBC [4.20-5.40 Mil/mm3] 4.25 Mil/mm3 (07/10/16 11:55 AM) Hgb [12.0-16.0 g/dL] 11.2 g/dL *LOW* (07/10/16 11:55 AM) Hct [37.0-47.0 %] 34.5 % *LOW* (07/10/16 11:55 AM) MCV [80.0-94.0 fL] 81.2 fL (07/10/16 11:55 AM) MCH [25.0-38.0 pg/cell] 26.4 pg/cell (07/10/16 11:55 AM) MCHC [31.0-37.0 g/dL] 32.5 g/dL (07/10/16 11:55 AM) RDW [1.0-48.0 fL] 39.6 fL (07/10/16 11:55 AM) Platelet [130-400 thou/mm3] 260 thou/mm3 (07/10/16 11:55 AM) Neutrophils % Auto [50.0-75.0 %] 61.6 % (07/10/16 11:55 AM) Immature Granulocyte Auto [0.1-2.0 %] 0.3 % (07/10/16 11:55 AM) Lymphocytes % Auto [15.0-41.0 %] 29.7 % (07/10/16 11:55 AM) Monocytes % Auto [2.0-10.0 %] 6.2 % (07/10/16:55 AM) Eosinophils % Auto [0.0-6.0 %] 2.1 % (07/10/16 AM) Basophil % Auto [0.0-1.0 %] 0.1 % (07/10/16 AM) Neutrophils Absolute [1.5-5.9 thou/mm3] 4.7 thou/mm3 (07/10/16 AM) Immature Gran Absolute [0.01-0.03 thou/mm3] 0.02 thou/mm3 (07/10/16:55 AM) Lymphocytes Absolute [1.5-4.0 thou/mm3] 2.3 thou/mm3 (07/10/16 AM) Monocytes Absolute [0.0-0.9 thou/mm3] 0.5 thou/mm3 (07/10/16: AM) Eosinophil Absolute [0.0-0.7 thou/mm3] 0.2 thou/mm3 (07/10/16: AM) Basophil Absolute [0.0-0.2 thou/mm3] 0.0 thou/mm3 (07/10/16 11:55 AM) Sodium Lvl [135-144 mEq/L] 141 mEq/L (07/10/16 AM) Potassium Lvl [3.3-4.8 mEq/L] 3.8 mEq/L (07/10/16: AM) Chloride Lvl [98-107 mEq/L] 103 mEq/L (07/10/16 AM) Bicarbonate Lvl [22-30 mmol/L] 28 mmol/L (07/10/16:55 AM) Anion Gap [10.0-20.0] 13.8 (07/10/16 11:55 AM) Glucose Lvl [70-108 mg/dL] 94 mg/dL (07/10/16 AM) BUN [7-21 mg/dL] 10 mg/dL (07/10/1655 AM) Creatinine Lvl [0.50-1.20 mg/dL] 0.76 mg/dL (07/10/16 11:55 AM) BUN/Creat Ratio 13.2 *NA* (07/10/16 11:55 AM) eGFR AA [>=60] >60 (07/10/16 11:55 AM) eGFR CAPO [>=60] >60 (07/10/16 11:55 AM) Calcium Lvl [8.6-10.2 mg/dL] 8.9 mg/dL (07/10/16 11:55 AM) Total Protein [6.4-8.3 g/dL] 6.6 g/dL (07/10/16 11:55 AM) Albumin Lvl [3.5-5.2 g/dL] 4.2 g/dL (07/10/16 11:55 AM) Globulin 2.4 *NA* (07/10/16 11:55 AM) A/G Ratio [0.9-1.8] 1.8 (07/10/16 11:55 AM) Bilirubin Total [0.1-1.0 mg/dL] 0.3 mg/dL (07/10/16 11:55 AM) Alkaline Phosphatase [39-129 unit/L] 90 unit/L (07/10/16 11:55 AM) AST [0-39 unit/L] 12 unit/L (07/10/16 11:55 AM) ALT [0-40 unit/L] 10 unit/L (07/10/16 11:55 AM) Lactic Acid Lvl [0.5-2.2 mmol/L] 1.1 mmol/L (07/10/16 11:55 AM) UA Color Yellow *NA* (07/10/16 11:59 AM) Urine Clarity Clear *NA* (07/10/16 11:59 AM) Specific [place] [1.000-1.060] 1.020 (07/10/16 11:59 AM) Urine pH [5-8] 6 (07/10/16 11:59 AM) Ketones Negative (07/10/16 11:59 AM) Bilirubin [Negative] Negative (07/10/16 11:59 AM) Urine Protein [Negative] Negative (07/10/16 11:59 AM) Glucose [Negative] Negative (07/10/16 11:59 AM) Urine HGB [Negative] Negative (07/10/16 11:59 AM) Urobilinogen <2.0 *NA* (07/10/16 11:59 AM) Nitrite [Negative] Negative (07/10/16 11:59 AM) Leuk Esterase [Negative] Negative (07/10/16 11:59 AM) UA Ascorbic Acid [Negative] Negative (07/10/16 11:59 AM) Urine WBC [0-5] 0-5 (07/10/16 11:59 AM) Urine RBC [0-2] 0-2 (07/10/16 11:59 AM) Squamous Epi [0-5] 0-5 (07/10/16 11:59 AM) Mucus 3+ *ABN* (07/10/16 11:59 AM) Hyaline Casts 0-2 (07/10/16 11:59 AM) HGC, SERUM QUAL [Negative] Negative (07/10/16 11:55 AM) Serum HCG, Interp. If test result does not correlate with clinical presentation, then either immediate serum quantitative HCG test or repeat qualitative test in forty-eight hours recommended. The test is intended as an aid in diagnosing early . *Unknown* (07/10/16 11:55 AM) Immunizations No data available for this section Procedures No data available for this section Social History No data available for this section Assessment and Plan No data available for this section
--- OUTSIDE RECORDS SUMMARY | 2016-09-06 08:39 | XMS REPORT | Summary of Care ---
:1985 Author Organization [facility] Address [address] [place] [address]- Care Team Providers Name Role Phone Gumaro Pitt Primary Care Physician Encounter Date(s): 06/04/16 - 06/04/[address] [address]- [facility] Discharge Diagnosis: Seizure Discharge Disposition: Discharged to Home or Self Care Attending Physician: Leland Talley DO Admitting Physician: Leland Talley DO Vital Signs Most recent to oldest [Reference Range]: 1 Temperature Temporal Artery [36.0-38.0 DegC] 35.6 DegC *LOW* (06/04/16 5:00 PM) Heart Rate Monitored [60-100 bpm] 98 bpm (06/04/16 5:00 PM) Respiratory Rate [12-20 br/min] 18 br/min (06/04/16 5:00 PM) SpO2 99 % (06/04/16 5:00 PM) Blood Pressure [90-130/60-90 mmHg] 124/80mmHg (06/04/16 5:00 PM) Weight Estimated 77 kg (06/04/16 5:00 PM) Weight Dosing 77.00 kg1 (06/04/16 5:02 PM) 1Result Comment: This result was because the dosing weight was either not entered or it is>30 days old. This result is based off: Weight Estimated June 04, 2016 17:00:00 ENGINEERING LAB TECHNICIAN by Bozena Brand RN Problem List No data available for this section Allergies, Adverse Reactions, Alerts Substance Reaction Severity Status gabapentin hives Severe Active traMADol hives Severe Active Medications FLUoxetine 20 mg oral capsule 3 cap(s), Oral, qAM, Start Date: 06/04/16 17:41:00 ENGINEERING LAB TECHNICIAN Start Date: 06/04/16 Status: OrderedhydrOXYzine pamoate 50 mg oral capsule 1 cap(s), Oral, TID, PRN as needed for anxiety, Start Date: 06/04/16 17:41:00 ENGINEERING LAB TECHNICIAN Start Date: 06/04/16 Status: Orderedibuprofen 800 mg oral tablet 1 tab(s), Oral, TID, scheduled dose, Start Date: 06/04/16 17:41:00 ENGINEERING LAB TECHNICIAN Start Date: 06/04/16 Status: OrderedKeppra 500 mg oral tablet 1 tab(s), Oral, BID, # 60 tab(s), 0 Refill(s), Start Date: 06/04/16 17:36:00 ENGINEERING LAB TECHNICIAN Start Date: 06/04/16 Status: OrderedLyrica 150 mg oral capsule 1 cap(s), Oral, BID, Start Date: 06/04/16 17:41:00 ENGINEERING LAB TECHNICIAN Start Date: 06/04/16 Status: OrderedOLANZapine 15 mg oral tablet 1 tab(s), Oral, Daily, Start Date: 06/04/16 17:41:00 ENGINEERING LAB TECHNICIAN Start Date: 06/04/16 Status: Orderedzolpidem 10 mg oral tablet 1 tab(s), Oral, HS, PRN for sleep, Start Date: 06/04/16 17:41:00 ENGINEERING LAB TECHNICIAN Start Date: 06/04/16 Status: Ordered Results Patient Viewable Results Most recent to oldest [Reference Range]: 1 Urine Amphetamine Scrn Negative (06/04/16 5:34 PM) Urine Barbiturate Scrn Negative (06/04/16 5:34 PM) Urine Benzodiazepine Scrn Negative (06/04/16 5:34 PM) Urine Cannabinoid Met Scrn Negative (06/04/16 5:34 PM) Urine Cocaine Met Scrn Negative (06/04/16 5:34 PM) Urine Methadone Scrn Presumptive Pos1 *ABN* (06/04/16 5:34 PM) Urine Opiate Scrn Negative (06/04/16 5:34 PM) Urine Phencyclidine Scrn Negative (06/04/16 5:34 PM) Urine Propoxyphene Scrn Negative (06/04/16 5:34 PM) Urine [Negative] Negative (06/04/16 5:34 PM) UA HCG, Interp. First morning urine specimen is preferred. If the result does not correlate with clinical presentation, then either immediate serum quantitative HCG test or repeat qualitative test in forty-eight hour s recommended. The test is intended as an aid in diagnosing early . *Unknown* (06/04/16 5:34 PM) 1Result Comment: Verified Results called to and read back by Adeola at 2016 6:34:46 PM ENGINEERING LAB TECHNICIAN by SHELLY, No confirmation requested Immunizations No data available for this section Procedures No data available for this section Social History No data available for this section Assessment and Plan No data available for this section
[2016-09-06 08:45] LABS: Urine Bilirubin Negative (NEGATIVE); Urine Ketone Negative (NEGATIVE); Urine Nitrite Negative (NEGATIVE); Urine Protein 15 mg/dL (NEGATIVE); Urine Specific Gravity 1.015 SP.GR. (1.005-1.010); Urine Urobilinogen Normal (NORMAL)
[2016-09-06 08:56] LABS: Urine Appearance Clear; Urine Bacteria None Seen; Urine Blood 10 /ul (NEGATIVE); Urine Color Yellow; Urine Mucus Few - 1+; Urine RBC None Seen /hpf (0-5); Urine WBC None Seen /hpf (0-5)
--- OUTSIDE RECORDS SUMMARY | 2016-09-06 09:11 | XMS REPORT | Continuity of Care Document ---
:1985 Author Organization [facility] [place] [address] Care Team Providers Name Role Phone Provider, None Per Patient Primary Care Provider Unavailable Source Comments This disclosure is being made pursuant to the Mediam[employer] program and maynot contain all information available regarding this patient.[facility] Active Allergies and Adverse Reactions Allergen Noted Date Severity Reactions Comments No Known Allergies 12/20/2013 Other (See Comments) Current Medications Be aware that medications may not be up to date as of this document. Alwaysverify current medications with the patient. Prescription Sig. Disp. Refills Start Date End Date Status HYDROcodone-acetaminoph Take 2 tablets by Active en (NORCO) 5-325 MG per mouth every 6 tablet (six) hours as needed for Pain. ALPRAZolam (XANAX) 0.25 TAKE 1 TABLET BY 30 tablet 0 04/23/2014 Active MG tablet MOUTH 3 TIMES DAILY NEEDED FOR SLEEP Active Problems Problem Noted Date Supervision of normal subsequent 08/18/2013 Overview: Overview: NEHEMIAS DINERO MD Most Recent Encounters Date Type Specialty Providers Description 08/16/2016 Data Import Social History Tobacco Use Types Packs/Day Years Used Date Never Smoker Alcohol Use Drinks/Week oz/Week Comments No Last Filed Vital Signs Vital Sign Reading Time Taken Blood Pressure 134/82 04/06/2014 2:45 PM SYSTEMS ANALYST ENGINEER Pulse - - Temperature - - Respiratory Rate - - Height 1.6 m (5' 3") 04/06/2014 2:45 PM SYSTEMS ANALYST ENGINEER Weight 68.675 kg (151 lb 6.4 oz) 04/06/2014 2:45 PM SYSTEMS ANALYST ENGINEER Body Mass Index 26.83 04/06/2014 2:45 PM SYSTEMS ANALYST ENGINEER Oxygen Saturation - - Plan of Care Health Maintenance Due Date Last Done Comments Tetanus/Pertussis (1 - Tdap) 09/05/2006 Influenza Immunization (#1) 2016 Pap Smear 08/18/2016 08/18/2013 Results from Last 3 Months Not on file
--- OUTSIDE RECORDS SUMMARY | 2016-09-06 09:11 | XMS REPORT | Continuity of Care Document ---
:1985 Author Organization [facility] Address [address] [place] [address] Phone [phone] Care Team Providers Name Role Phone Gumaro Pitt Primary Care Provider [phone] Source Comments This disclosure is being made pursuant to the Care Everywhere program, applicable federal and state laws, and may not contain all informaitonavailable regarding this patient.[facility] ([facility]) Active Allergies and Adverse Reactions Allergen Noted [...] Taken Blood Pressure 128/96 07/16/2016 6:16 PM SEMICONDUCTOR ASSEMBLER Pulse 104 07/16/2016 6:16 PM SEMICONDUCTOR ASSEMBLER Temperature 36.5 C (97.7 F) 07/16/2016 6:16 PM SEMICONDUCTOR ASSEMBLER Respiratory Rate 16 07/16/2016 6:16 PM SEMICONDUCTOR ASSEMBLER Height 1.6 m (5' 3") 10/21/2015 4:49 AM CDT Weight 83 kg (182 lb 15.7 oz) 07/16/2016 4:22 PM SEMICONDUCTOR ASSEMBLER Body Mass Index 32.42 07/16/2016 4:22 PM SEMICONDUCTOR ASSEMBLER Oxygen Saturation 100% 07/16/2016 6:16 PM SEMICONDUCTOR ASSEMBLER Plan of Care Date Type Specialty Providers Description 10/03/2016 Appointment Gynecology Karla dAams MD Chief Comp: Patient [address] [place] [address] [phone] (Fax) Health Maintenance Due Date Last Done [...] Cloudy(A) Clear pH, Urine 6.0 <9.0 Spec [place], Urine 1.025 1.000-1.030 Glucose, Urine Negative Negative [...] Abnormality Status --------- ------ URINALYSIS WITH REFLEX C...[[id number]]AbnormalFinal result MICROSCOPIC URINALYSIS[[id number]] Abnormal Final result URINE CULTURE, REFLEXED[[id number]] Please view results for these tests on the individual orders. DIFFERENTIAL (07/16/2016 8:26 PM)Only the most recent of2 resultswithin the time period is included. Component Value Range % Neutrophils-Auto Diff 67.5 % Neutrophils-Auto Diff 6870 6575-0090 /MM3 % Lymphocytes-Auto Diff 23.1 % Lymphocytes-Auto [...] Abnormality Status --------- ------ CBC (COMPLETE BLOOD COUNT)[[id number]] AbnormalFinal result DIFFERENTIAL[[id number]] Final result Please view results for these tests on the individual orders. PAPER AND PRINTS RESTORER ULTRASOUND (07/09/2016 7:12 PM) Narrative Gynecology Report Referral from: [facility] [id number] PATIENT INFORMATION: Name: MARISSA ANSARI#: [id number] Age:30 y/oExam Date: 07/09/2016 :1985 Location: After hours PAPER AND PRINTS RESTORER LMP:Not Available Approach:Transvaginal. INDICATION:Pelvic pain. Rule out [...] de sac. Dr. Zaida Huff MD ([id number]) Library Media Technician: Yashira Shah RDMS, RVT Procedure Note Ever, Incoming Imaging Results - SatJul 11, 2016 1:44 PM SEMICONDUCTOR ASSEMBLER Gynecology Report Referral from: [place] [address] PATIENT INFORMATION: Name: MRAISSA DE DIOS MR#: [id number] Age: 30 y/o Exam Date: 07/09/2016 : 1985 Location: After hours PAPER AND PRINTS RESTORER LMP: Not Available Approach: Transvaginal. INDICATION: Pelvic [...] de sac. Dr. Zaida Huff MD ([id number]) Library Media Technician: Yashira Shah RDMS, RVT NEISSERIA GONORRHOEAE PCR [...] amphetamine and methamphetamine, as well as the "mask layout designer" amphetamines MDMA ("Ecstasy"), MDA, MDEA ("Daphney"), and MBDB. Labetalol may also produce false positi ves due to cross-reactivity of a metabolite.The amphetamines assay has little or no cross-reactivity with ephedrine, pseudoephedrine, phentermine, and methylphenidate. Opiates assay has low cross-reac tivity for buprenorphine, fentanyl, meperidine, methadone, oxycodone, and propoxyphene (all have cut-offs greater than 75,000 ng/mL). Please see Laboratory Services Handbook ([email or web address].[email or web address]_ handbook.index.html) for more detailed information on assay cross-reactivity. Drug of abuse screening tests are to be used for medical purposes only and not for non-medical purposes (e.g., employee, front end architect, or forensic testing). Specimen Urine KEPPRA (LEVETIRACETAM) [...] 72 4 weeks 10 - 708 5 - 8, 245 6 [id number] - 32, 177 7 weeks 4,059 - [...]
--- OUTSIDE RECORDS SUMMARY | 2016-09-06 09:12 | XMS REPORT | Continuity of Care Document ---
:1985 Author [facility] [place] [address] Phone [phone] Care Team Providers Name Role Phone YoandyGumaro Primary Care Provider [phone] Active Allergies and Adverse Reactions Allergen Noted [...] Health Maintenance Due Date Last Done Comments [facility] Dtap/Tdap/Td Vaccines (1 - Tdap) 09/05/2006 [facility] Cervical Cancer Screening 09/05/2008 [facility] Influenza 12/18/2016 02/06/2016 [facility] Zoster (#1) 2047 Results from Last 3 Months Not on file
[2016-09-06] MEDS ORDERED: oxyCODONE HCL/ACETAMINOPHEN 1 TAB TABLET PO ONE ×2 (09:42→10:33)
[2016-09-06] MEDS ORDERED: RINGERS SOLUTION,LACTATED 1,000 ML IV PRN (09:42)
[2016-09-06] MEDS ORDERED: IBUPROFEN 800 MG TABLET PO ONE (09:42)
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
[2016-09-06 10:57] LABS: Cocaine Ur Negative (NEGATIVE); Urine Barbiturate Negative (NEGATIVE); Urine PCP Negative (NEGATIVE); Urine THC Negative (NEGATIVE)
[2016-09-06 11:00] LABS: Urine Benzodiazepines Positive (NEGATIVE); Urine Opiates Positive (NEGATIVE)
[2016-09-06 12:27] VITALS: BP 128/79
[2016-09-07 11:41] LABS: Herpes Simplex Type 1 IgG Ab <0.90 index
[2016-09-07 13:25] LABS: Hepatitis C Antibody NON-REACTIVE (NON-REACTIVE); Hepatitis Panel Confirmation DNR
[2016-09-07 13:26] LABS: Hepatitis A IgM Antibody NON-REACTIVE (NON-REACTIVE); Hepatitis B Surface Antigen NON-REACTIVE (NON-REACTIVE); RPR Screen NON-REACTIVE (NON-REACTIVE)
== END 2016-09-06 08:01 | disposition home or self-care (01) ==
LOC: ER 03:18 → AMB 08:00
PROVIDERS: ATTEND Obstetrics & Gynecology
PROC: 0UCG7ZZ Extirpation of Matter from Vagina, Via Natural or Artificial Opening (ICD-10-PCS; principal; 2016-09-06 08:00)
DX: T19.2XXA Foreign body in vulva and vagina, initial encounter (principal); S30.811A Abrasion of abdominal wall, initial encounter; R10.30 Lower abdominal pain, unspecified; X99.8XXA Assault by other sharp object, initial encounter; F41.9 Anxiety disorder, unspecified; F32.9 Major depressive disorder, single episode, unspecified; F17.200 Nicotine dependence, unspecified, uncomplicated; Z68.29 Body mass index [BMI] 29.0-29.9, adult

== ENCOUNTER 2017-04-21 08:32 | Emergency (ER) | payer BC, OTHER ==
[2017-04-21] MEDS ORDERED: NORMAL SALINE 1,000 ML IV ONE ×2 (08:52→10:27)
[2017-04-21] MEDS ORDERED: diphenhydrAMINE HCL 50 MG/ML VIAL IV ONE (08:55)
[2017-04-21] MEDS ORDERED: METOCLOPRAMIDE HCL 5 MG/ML VIAL IV ONE (08:55)
[2017-04-21] MEDS ORDERED: diphenhydrAMINE HCL 50 MG/ML VIAL ONE (09:00)
[2017-04-21] MEDS ORDERED: METOCLOPRAMIDE HCL 5 MG/ML VIAL ONE (09:01)
--- NOTE | 2017-04-21 09:01 | ERNOTE ---
Medical Problem HPI - Narrative Date of Service: 04/21/17 - General Chief Complaint: Nausea/Vomiting Time Seen by Provider: 04/21/17 08:45 Source: patient Exam Limitations: no limitations - Immun/Allergies/Home Medications Immunizations: IMMUNIZATION HX Immunizations Up to Date Yes History of Influenza Vaccine Yes Hx Pneumococcal Vaccination No Allergies/Adverse Reactions: Allergies ketorolac tromethamine [From Toradol] Allergy (Intermediate, Verified 04/21/17 08:46) Itching NSAIDS (Non-Steroidal Anti-Inflamma Allergy (Intermediate, Verified 04/21/17 08: 46) Hives gabapentin [From Neurontin] Allergy (Verified 04/21/17 08:46) ketamine Allergy (Verified 04/21/17 08:46) tramadol Allergy (Verified 04/21/17 08:46) Home Medications: HOME MEDICATIONS ALPRAZolam [Xanax] 0.5 mg PO TID PRN 05/28/15 [Last Taken Unknown] FLUoxetine HCL [Fluoxetine HCl] 60 mg PO DAILY 02/03/16 [Last Taken Unknown] Dextroamphetamine/Amphetamine [Adderall 20 mg Tablet] 20 mg PO BID 09/06/16 [ Last Taken Unknown] Zolpidem Tartrate [Ambien] 10 mg PO HS PRN 09/06/16 [Last Taken Unknown] Lyrica 300 mg PO BID 04/21/17 [Last Taken Unknown] Ondansetron [Zofran Odt] 4 mg PO Q6H PRN #20 tab 04/21/17 [Last Taken Unknown] oxyCODONE HCL/ACETAMINOPHEN [Percocet 10-325 mg Tablet] 1 each PO PRN 04/21/17 [ Last Taken Unknown] - History of Present History Narrative: Patient presents with a variety of problems, she states that she has had diarrhea with nausea and vomiting for approximately a week and that she is having some difficulty taking her medications. She has been off her Keppra for a period of time and started having what she describes as breakthrough partial complex seizures. She feels that she has lost upwards to 20 pounds and complains of chronic pain that she sees a physician and I will say for and takes oxycodone to help control. Timing: intermittent Severity: moderate Review of Systems - Review of Systems Constitutional: Present: See HPI EYE: Present: no symptoms reported ENT: Present: no symptoms reported Respiratory: Present: no symptoms reported Cardiology: Present: no symptoms reported Gastrointestinal/Abdominal: Present: nausea, vomiting, diarrhea Genitourinary: Present: no symptoms reported Musculoskeletal: Present: no symptoms reported Skin: Present: no symptoms reported Neurological: Present: anxiety, emotional problems Endocrine: Present: no symptoms reported Hematologic/Lymphatic: Present: no symptoms reported Psych: Present: no symptoms reported - Patient's Past Medical History Patient History - Medical: ADHD, Anxiety, Chronic Pain, Depression, Other - questionable schizophrenia Patient History - Cardiac/Respiratory: No pertinent hx Patient History - Cancer: No Hx of Cancer Patient History - Surgical Procedures: Appendectomy, , T & A, Other Patient History - Other: None LMP (females 10-50): 1 month - Social History Living Situations: alone Abuse History: No History of abuse Psych History: Hx of Anxiety, Hx of Depression, Hx of Psychiatric Tx, Current tx /ever been on anti-depressants or anti-anxiety meds Smoking Status: Former smoker Have you smoked in the past 12 months: No Do you dip or chew tobacco: No Alcohol Use: none Drug Use: none - Immunizations Immunizations Up to Date: Yes Hx Pneumococcal Vaccination: No History of Influenza Vaccine: Yes Physical Exam - Physical Exam General Appearance: Present: wd/wn, alert, moderate distress Head Exam: Present: normal inspection Eye Exam: Normal inspection: bilateral, PERRL: bilateral Ears, Nose, Throat: Present: normal ENT inspection, H, normal pharynx Neck: Present: normal inspection, nontender Respiratory: Present: no respiratory distress, normal breath sounds, no accessory muscle use, chest nontender, lungs clear Cardiovascular/Chest: Present: regular rate, rhythm, no murmur, normal peripheral pulses Gastrointestinal/Abdominal: Present: normal bowel sounds, nondistended, soft, no organomegaly, tenderness - generalized Rectal Exam: Present: deferred Back Exam: Present: normal inspection, normal range of motion Extremity Exam: Present: normal inspection, non-tender, no edema, normal range of motion Neurological Exam: Present: alert, oriented, normal mood/affect Skin Exam: Present: normal color, warm/dry Lymphatic Exam: Present: no adenopathy ED Progress - Results and Orders Patient's Lab Results:: I have reviewed the patient's lab results. - Vital Signs Patient's Vital Signs:: I have reviewed the patient's vital signs. Vital Signs: Vital Signs 04/21/17 08:37 Temperature 36.5 C Pulse Rate 95 Respiratory 16 Rate Blood Pressure 165/99 O2 Sat by Pulse 99 Oximetry - Progress/Reassessment Chief Complaint: Nausea/Vomiting Progress:: Improved Plan - Plan Plan: Patient states she is confused as to how the cocaine, amphetamines, benzodiazepines and marijuana got into her system. She states she will try to be much more careful with who she associates with as this could be the cause of her not feeling well. Departure Clinical Impression: Substance abuse - Departure Disposition: Home self-care Condition: Good Instructions: Stimulant Use Disorder-Cocaine, Stimulant Use Disorder- Methamphetamines, Finding Treatment for Addiction Referrals: Gumaro Pitt MD [Primary Care Provider] - Prescriptions: Ondansetron [Zofran Odt] 4 mg PO Q6H PRN #20 tab PRN Reason: Nausea And Vomiting
[2017-04-21 09:07] LABS: Hematocrit 35.3 % (37.0-47.0); Hemoglobin 11.6 gm/dL (12.5-16.0); Mean Cell Volume 78.4 fl (78-100); Mean Corpuscular Hemoglobin 25.8 pg (27-31); Mean Corpuscular Hgb Conc 32.9 g/dl (32-36); Mean Platelet Volume 9.6 fl (6.0-9.5); Neutrophil # 5.4 K/mm3 (1.3-6.0); Neutrophil % 60.6 % (42-75.0); Platelet Count 313 K/mm3 (150-450); Red Cell Distribution Width 13.8 % (11.5-14.0); White Blood Count 8.9 K/mm3 (4.0-10.5)
[2017-04-21 09:20] LABS: Albumin * 4.4 gm/dl (3.4-5.0); Anion Gap 17.2 mmol/L (6.8-13.8); BUN/Creatinine Ratio 12.2 (9.0-21.6); Bilirubin, Total 0.8 mg/dL (0.0-1.1); Ca. Corrected For Albumin 8.6 mg/dL (8.4-10.2); Calcium * 9.2 mg/dL (7.9-10.9); Carbon Dioxide 23.8 mmol/L (24-32.6); Magnesium 2.1 mg/dL (1.2-2.8); Total Protein 8.6 gm/dL (6.2-8.2)
[2017-04-21 09:57] LABS: Urine Bilirubin 1 mg/dl (NEGATIVE); Urine Ketone Large mg/dL (NEGATIVE); Urine Nitrite Negative (NEGATIVE); Urine Specific Gravity 1.025 SP.GR. (1.005-1.010); Urine Urobilinogen Normal (NORMAL); Urine pH 6.5 pH (5.0-7.0)
[2017-04-21 10:00] LABS: Urine Blood 5 /ul (NEGATIVE)
[2017-04-21 10:01] LABS: Urine Appearance Clear; Urine Bacteria TRACE; Urine Color Yellow; Urine Protein 15 mg/dL (NEGATIVE); Urine RBC 0-5 /hpf (0-5); Urine WBC 0-5 /hpf (0-5)
[2017-04-21 10:11] LABS: Cocaine Ur Positive (NEGATIVE); Urine Barbiturate Negative (NEGATIVE); Urine Benzodiazepines Positive (NEGATIVE); Urine Opiates Negative (NEGATIVE); Urine PCP Negative (NEGATIVE); Urine THC Positive (NEGATIVE)
[2017-04-21] MEDS ORDERED: chlorproMAZINE HCL 20 MG in NORMAL SALINE 50 ML IV ONE (10:33)
[2017-04-21 10:58] VITALS: BP 139/74
[2017-04-21] MEDS ORDERED: ACETAMINOPHEN 325 MG TABLET PO ONE (11:15)
[2017-04-21] MEDS ORDERED: ACETAMINOPHEN 325 MG TABLET ONE (11:16)
== END 2017-04-21 11:48 | disposition home or self-care (01) ==
LOC: ER 08:32
DX: F19.10 Other psychoactive substance abuse, uncomplicated (principal); Z87.891 Personal history of nicotine dependence; F41.9 Anxiety disorder, unspecified; F90.9 Attention-deficit hyperactivity disorder, unspecified type
CPT/HCPCS: 36415; 80053; 80307; 81001; 83735; 85025; 96365; 96367; 96375; 99284; G0481

== ENCOUNTER 2019-06-15 04:39 | Inpatient (IN) ==
[2019-06-15 05:48] LABS: Hematocrit 27.2 % (37.0-47.0); Hemoglobin 8.8 gm/dL (12.5-16.0); Mean Cell Volume 79.5 fl (78-100); Mean Corpuscular Hemoglobin 25.7 pg (27-31); Mean Corpuscular Hgb Conc 32.4 g/dl (32-36); Mean Platelet Volume 9.2 fl (8-12.5); Neutrophil # 10.6 K/mm3 (1.3-6.0); Neutrophil % 72.2 % (42-75.0); Platelet Count 308 K/mm3 (150-450); Red Blood Count 3.42 M/mm3 (4.2-5.4); Red Cell Distribution Width 13.6 % (11.5-14.0); White Blood Count 14.6 K/mm3 (4.0-10.5)
[2019-06-15 05:51] LABS: Prothrombin Time (Patient) 9.8 Seconds (9.1-10.7)
[2019-06-15 05:52] LABS: INR 0.99 INR (0.92-1.08); Partial Thrombolplastin Time 22.8 Seconds (24-32)
[2019-06-15 07:27] LABS: Albumin * 2.6 gm/dl (3.4-5.0); Anion Gap 15.2 mmol/L (6.8-13.8); BUN/Creatinine Ratio 8.6 (9.0-21.6); Bilirubin, Total 0.3 mg/dL (0.0-1.1); Calcium * 8.2 mg/dL (7.9-10.9); Carbon Dioxide 23.6 mmol/L (24-32.6); Potassium 2.8 mmol/L (3.4-4.6); Total Protein 6.2 gm/dL (6.2-8.2)
[2019-06-15 08:05] LABS: Random Urine Total Protein 37.6 mg/dL (0-12)
[2019-06-15 08:20] LABS: Cocaine Ur Negative (NEGATIVE); Urine Barbiturate Negative (NEGATIVE); Urine Benzodiazepines Positive (NEGATIVE); Urine Opiates Positive (NEGATIVE); Urine PCP Negative (NEGATIVE); Urine THC Negative (NEGATIVE)
[2019-06-15] MEDS ORDERED: BETAMETHASONE ACETATE,SOD PHOS 6 MG/ML VIAL IM ONE (08:55)
[2019-06-15] MEDS: RINGER'S SOLUTION,LACTATED 1,000 ML IV PRN ×2 (09:15→10:15)
[2019-06-15] MEDS ORDERED: LIDOCAINE HCL 20 ML VIAL ONE (09:21)
[2019-06-15] MEDS ORDERED: NORMAL SALINE 20 ML VIAL ONE (09:21)
[2019-06-15] MEDS ORDERED: BUPIVACAINE HCL/EPINEPHRINE 50 ML VIAL IJ ONE (09:21)
--- NOTE | 2019-06-15 09:21 | HP ---
Chief Complaint - Chief Complaint Date of Service: 06/15/19 Time of Service: 09:08 Chief Complaint: vaginal bleeding, abdominal pain History of Present Illness: 33 year old at 36w 5d who presents to labor and delivery reporting vaginal bleeding and abdominal pain. She denies loss of fluid. Reports increasing pain and contractions. Fetus is active. Denies headache, visual changes or abdominal pain. Medical History (Last Reviewed 06/15/19 @ 09:10 by Vandana Lanier MD) ADHD Amphetamine use disorder, severe, dependence Anxiety Borderline personality disorder Chronic constipation Chronic pain Drug overdose Drug overdose, intentional Frostbite Iron deficiency anemia Lower abdominal pain Major depression Marijuana abuse Methamphetamine abuse PTSD (post-traumatic stress disorder) Pelvic adhesive disease Pelvic pain Psychotic disorder Severe benzodiazepine use disorder Substance abuse Suicide attempt Terminal ileitis with complication Uncomplicated opioid dependence Surgical History: Surgical History (Last Reviewed 06/15/19 @ 09:10 by Vandana Lanier MD) Hx of section Previous section Social History: (Last Reviewed 06/15/19 @ 09:10 by Vandana Lanier MD) Tobacco: Smoking Status: Former smoker tobacco type: cigarettes Smoking packs per day: 0.25 Years smoked: 2 Review Of Systems (GEN) - Review of Systems Generalized/Overall Review: Absent: Chills, Fever EENTM: Present: No Symptoms Reported Respiratory: Present: No Symptoms Reported Cardiac: Present: No Symptoms Reported Abdominal: Present: Abdominal Pain Genitourinary: Present: Other - vaginal bleeding Musculoskeletal: Present: No Symptoms Reported Neurological: Present: No Symptoms Reported Skin: Present: No Symptoms Reported Endocrine: Present: No Symptoms Reported Misc: All systems neg except as marked Immunizations: IMMUNIZATION HX Immunizations Up to Date Yes History of Influenza Vaccine No Hx Pneumococcal Vaccination No Allergies/Adverse Reactions: Allergies Allergy/AdvReac Type Severity Reaction Status Date / Time ketorolac tromethamine Allergy Intermediate Itching Verified 03/03/19 12:29 [From Toradol] NSAIDS (Non-Steroidal Allergy Intermediate Hives Verified 03/03/19 12:29 Anti-Inflamma gabapentin [From Neurontin] Allergy Verified 03/03/19 12:29 ketamine Allergy Verified 03/03/19 12:29 tramadol Allergy Verified 03/03/19 12:29 Home Medications: HOME MEDICATIONS ALPRAZolam [Xanax] 0.5 mg PO HS PRN 05/28/15 [Last Taken 06/14/19 21:00] Acetaminophen [Tylenol] 1,000 mg PO BID 06/15/19 [Last Taken 06/14/19 20:00] [id number]/FA/Omega3/Dha/Fish Oil [ Gummies] 1 ea PO DAILY 06/15/19 [Last Taken Unknown] Exam - Exam Vital Signs: Vital Signs - Last Taken Temp 36.8 C 06/15/19 05:00 Pulse 80 06/15/19 05:00 Resp 16 06/15/19 05:00 BP 141/73 H 06/15/19 05:00 Pulse Ox 99 06/15/19 05:00 Constitutional: Present: Alert, Oriented x3, Cooperative, No distress ENT Exam: Present: hearing grossly normal Neck: Present: full range of motion, supple Back Exam: Present: normal inspection, no CVA tenderness, no vertebral tenderness Breasts: Present: Exam deferred Respiratory: Present: lungs clear, normal breath sounds Cardiovascular/Chest: Present: regular rate, rhythm, no murmur Abdomen: Present: soft, nondistended, tender - the patient is very tender in both the RLQ and LLQ /Rectal: Present: Other - cervix is closed and very soft and very anterior. Blood on my glove when I examined the patient Extremity: Present: non-tender, no calf tenderness Skin Exam: Present: normal color, warm/dry, no cyanosis Lymphatic: Present: no adenopathy Appearance: Present: appropriate appearance Eye contact: Present: cooperative Thoughts: Present: normal thought pattern Diagnostic Studies: Abnormal Lab Results 06/15/19 06/15/19 06/15/19 Range/Units 05:30 05:30 05:30 WBC 14.6 H (4.0-10.5) K/mm3 RBC 3.42 L (4.2-5.4) M/mm3 Hgb 8.8 L (12.5-16.0) gm/dL Hct 27.2 L (37.0-47.0) % MCH 25.7 L (27-31) pg Immature Gran % (Auto) 0.70 H (0.001-0.429) % Immature Gran # (Auto) 0.10 H (0.000-0.0310) K/mm3 Neutrophils # 10.6 H (1.3-6.0) K/mm3 PTT ([place]) 22.8 L (24-32) Seconds Potassium 2.8 L (3.4-4.6) mmol/L Carbon Dioxide 23.6 L (24-32.6) mmol/L Anion Gap 15.2 H (6.8-13.8) mmol/L BUN/Creatinine Ratio 8.6 L (9.0-21.6) Albumin 2.6 L (3.4-5.0) gm/dl U Random Total Protein (0-12) mg/dL U [place] Prot/Creat Ratio (0-199) mg/gm Urine Opiates Screen (NEGATIVE) U Benzodiazepines Scrn (NEGATIVE) 06/15/19 06/15/19 Range/Units 07:00 07:00 WBC (4.0-10.5) K/mm3 RBC (4.2-5.4) M/mm3 Hgb (12.5-16.0) gm/dL Hct (37.0-47.0) % MCH (27-31) pg Immature Gran % (Auto) (0.001-0.429) % Immature Gran # (Auto) (0.000-0.0310) K/mm3 Neutrophils # (1.3-6.0) K/mm3 PTT ([place]) (24-32) Seconds Potassium (3.4-4.6) mmol/L Carbon Dioxide (24-32.6) mmol/L Anion Gap (6.8-13.8) mmol/L BUN/Creatinine Ratio (9.0-21.6) Albumin (3.4-5.0) gm/dl U Random Total Protein 37.6 H (0-12) mg/dL U [place] Prot/Creat Ratio 606 H (0-199) mg/gm Urine Opiates Screen Positive H (NEGATIVE) U Benzodiazepines Scrn Positive H (NEGATIVE) Laboratory Results WBC 14.6 K/mm3 (4.0-10.5) H 06/15/19 05:30 RBC 3.42 M/mm3 (4.2-5.4) L 06/15/19 05:30 Hgb 8.8 gm/dL (12.5-16.0) L 06/15/19 05:30 Hct 27.2 % (37.0-47.0) L 06/15/19 05:30 MCV 79.5 fl (78-100) 06/15/19 05:30 MCH 25.7 pg (27-31) L 06/15/19 05:30 MCHC 32.4 g/dl (32-36) 06/15/19 05:30 RDW 13.6 % (11.5-14.0) 06/15/19 05:30 Plt Count 308 K/mm3 (150-450) 06/15/19 05:30 MPV 9.2 fl (8-12.5) 06/15/19 05:30 Immature Gran % (Auto) 0.70 % (0.001-0.429) H 06/15/19 05:30 Immature Gran # (Auto) 0.10 K/mm3 (0.000-0.0310) H 06/15/19 05:30 Neutrophils % 72.2 % (42-75.0) 06/15/19 05:30 Lymphocytes % 20.6 % (20-51) 06/15/19 05:30 Monocytes % 5.3 % (0.0-9) 06/15/19 05:30 Eosinophils % 0.9 % (0.0-3.0) 06/15/19 05:30 Basophils % 0.3 % (0.0-1.0) 06/15/19 05:30 Nucleated RBC % 0.0 k/mm3 (0-1) 06/15/19 05:30 Neutrophils # 10.6 K/mm3 (1.3-6.0) H 06/15/19 05:30 Lymphocytes # 3.01 k/mm3 (1.5-3.5) 06/15/19 05:30 Monocytes # 0.8 k/mm3 (0.0-1.0) 06/15/19 05:30 Eosinophils # 0.1 k/mm3 (0.0-0.7) 06/15/19 05:30 Absolute Basophils 0.0 k/mm3 (0.0-0.1) 06/15/19 05:30 PT 9.8 Seconds (9.1-10.7) 06/15/19 05:30 INR (Anticoag Therapy) 0.99 INR (0.92-1.08) 06/15/19 05:30 PTT ([place]) 22.8 Seconds (24-32) L 06/15/19 05:30 Fibrinogen 365 mg/dL (202-388) 06/15/19 05:30 Sodium 140 mmol/L (132-142) 06/15/19 05:30 Plasma Sodium 140 mmol/L (130-142) 06/15/19 05:30 Potassium 2.8 mmol/L (3.4-4.6) L 06/15/19 05:30 Chloride 104 mmol/L (97-106) 06/15/19 05:30 Carbon Dioxide 23.6 mmol/L (24-32.6) L 06/15/19 05:30 Anion Gap 15.2 mmol/L (6.8-13.8) H 06/15/19 05:30 BUN 5 mg/dL (3-23) 06/15/19 05:30 Creatinine 0.58 mg/dL (0.4-1.4) 06/15/19 05:30 Est GFR (Non-Af Amer) 129 mL/min (60-130) D 06/15/19 05:30 BUN/Creatinine Ratio 8.6 (9.0-21.6) L 06/15/19 05:30 Random Glucose 90 mg/dL (70-110) 06/15/19 05:30 Calcium 8.2 mg/dL (7.9-10.9) 06/15/19 05:30 Calcium Adj for Albumin 9.0 mg/dL (8.4-10.2) 06/15/19 05:30 Total Bilirubin 0.3 mg/dL (0.0-1.1) 06/15/19 05:30 AST 19 U/L (0-48) 06/15/19 05:30 ALT 21 U/L (19-67) 06/15/19 05:30 Alkaline Phosphatase 123 U/L (50-170) 06/15/19 05:30 Total Protein 6.2 gm/dL (6.2-8.2) 06/15/19 05:30 Albumin 2.6 gm/dl (3.4-5.0) L 06/15/19 05:30 Ur Random Creatinine 62.0 mg/dL (60-200) 06/15/19 07:00 U Random Total Protein 37.6 mg/dL (0-12) H 06/15/19 07:00 U [place] Prot/Creat Ratio 606 mg/gm (0-199) H 06/15/19 07:00 Urine Opiates Screen Positive (NEGATIVE) H 06/15/19 07:00 Barbiturate Screen Negative (NEGATIVE) 06/15/19 07:00 Ur Phencyclidine Scrn Negative (NEGATIVE) 06/15/19 07:00 Urine Amphetamine Negative (NEGATIVE) 06/15/19 07:00 U Benzodiazepines Scrn Positive (NEGATIVE) H 06/15/19 07:00 Urine Cocaine Screen Negative (NEGATIVE) 06/15/19 07:00 Urine Marijuana (THC) Negative (NEGATIVE) 06/15/19 07:00 Blood Type O Negative 06/15/19 05:30 Antibody Screen Positive 06/15/19 05:30 Antibody Identification Cancelled 06/15/19 05:30 Assessment/Plan - Narrative Narrative: 33 year old at 36w 5d who presents to labor and delivery with abdominal pain and vaginal bleeding. The patient had an ultrasound to rule out abruption which was negative for abruption but ultrasound is not a great tool to rule out abruption unless it is an obvious abruption. The patient clinically has an abruption. She has abdominal pain, abdominal tenderness, and vaginal bleeding. She is vicky every minute now which is a change in status as compared to when the patient initially presented. The patient's abdominal tenderness is very impressive and although she is not term delaying delivery for 2 days for the patient to reach full term does not seem prudent given her very impressive abdominal exam and change in status. Steroids not administered given imminent delivery She has also ruled in for pre-eclampsia without severe features which further increases the risk of placental abruption. Proceed with repeat delivery. Will perform salpingectomies if consent obtained from the [facility] All risks, benefits, and alternatives of the procedure were explained to the patient and the patient consented to the procedure
[2019-06-15] MEDS ORDERED: EPINEPHrine 1 MG/ML AMPUL ONE (09:24)
[2019-06-15] MEDS ORDERED: DEXTROSE 5%-LACTATED RINGERS 1,000 ML IV PRN (09:44)
[2019-06-15] MEDS ORDERED: OXYTOCIN 20 UNITS in RINGER'S SOLUTION,LACTATED 1,000 ML IV ONE (09:44)
[2019-06-15] MEDS ORDERED: ceFAZolin SODIUM 1 GM VIAL ONE (09:46)
--- NOTE | 2019-06-15 09:53 | ANES ---
Anesthesia Pre Procedure Eval Vitals/Labs: Last Vital Signs Temp 36.8 C 06/15/19 05:00 Pulse 80 06/15/19 05:00 Resp 16 06/15/19 05:00 BP 141/73 H 06/15/19 05:00 Pulse Ox 99 06/15/19 05:00 HOME MEDICATIONS ALPRAZolam [Xanax] 0.5 mg PO HS PRN 05/28/15 [Last Taken 06/14/19 21:00] Acetaminophen [Tylenol] 1,000 mg PO BID 06/15/19 [Last Taken 06/14/19 20:00] [id number]/FA/Omega3/Dha/Fish Oil [ Gummies] 1 ea PO DAILY 06/15/19 [Last Taken Unknown] Allergies/Adverse Reactions: Allergies Allergy/AdvReac Type Severity Reaction Status Date / Time ketorolac tromethamine Allergy Intermediate Itching Verified 03/03/19 12:29 [From Toradol] NSAIDS (Non-Steroidal Allergy Intermediate Hives Verified 03/03/19 12:29 Anti-Inflamma gabapentin [From Neurontin] Allergy Verified 03/03/19 12:29 ketamine Allergy Verified 03/03/19 12:29 tramadol Allergy Verified 03/03/19 12:29 - Planned Procedure Planned Procedure: Medication List Reviewed:: Yes Allergies Verified: Yes Medical History (Last Reviewed 06/15/19 @ 09:51 by You Mcgrath CRNA) ADHD Amphetamine use disorder, severe, dependence Anxiety Borderline personality disorder Chronic constipation Chronic pain Drug overdose Drug overdose, intentional Frostbite Iron deficiency anemia Lower abdominal pain Major depression Marijuana abuse Methamphetamine abuse PTSD (post-traumatic stress disorder) Pelvic adhesive disease Pelvic pain Psychotic disorder Severe benzodiazepine use disorder Substance abuse Suicide attempt Terminal ileitis with complication Uncomplicated opioid dependence Surgical History (Last Reviewed 06/15/19 @ 09:52 by You Mcgrath CRNA) Hx of section Previous section - Family Anesthesia History Family History:: no untoward family reactions to anesthesia - Airway/Neck/Teeth Denture Type: Full upper Neck Exam: full range of motion Mallampatti Score: 2 Thyromental (T-M) distance: > 6 cm Mandibulo Hyoid distance: > 3 cm - Respiratory Respiratory Physical: lungs clear Smoking Status: Current some day smoker Sleep Apnea currently treated: No Sleep Apnea by current assessment: No - Cardiovascular Tolerate Activity: Fair Heart Sounds: S1 & S2, Regular - Gastrointestinal NPO since: MN - Anesthesia Assessment and Plan ASA Class: PS, II, E Anesthesia Type Plan: Spinal - Bilat tap block
[2019-06-15] MEDS ORDERED: PROPOFOL VIAL IV ONE ×2 (09:56→11:33)
[2019-06-15] MEDS ORDERED: ONDANSETRON HCL/PF 2 MG/ML VIAL ONE (10:46)
[2019-06-15] MEDS ORDERED: fentaNYL CITRATE/PF 50 MCG/ML AMPUL ONE ×2 (11:57→12:19)
[2019-06-15] MEDS ORDERED: BISACODYL 10 MG SUPP.RECT RC PRN (12:03)
[2019-06-15] MEDS ORDERED: oxyCODONE HCL/ACETAMINOPHEN 1 TAB TABLET PO PRN (12:03)
[2019-06-15] MEDS ORDERED: SENNOSIDES 8.6 MG TABLET PO PRN (12:03)
[2019-06-15] MEDS ORDERED: ONDANSETRON HCL/PF 2 MG/ML VIAL IV PRN (12:03)
--- NOTE | 2019-06-15 12:09 | OR ---
Operative Report - Dictated Report Narrative: Date of delivery: 06/15/2019 Time of delivery: 1045 Gender: female weight: 2310 grams APGARS: 8/9 Preoperative diagnosis: IUP at 36w 5d, suspected placental abruption, xanax use during , UDS positive for opiates and benzos, Rh negative Postoperative diagnosis: same including placental abruption, meconium stained amniotic fluid, loose nuchal cord Procedure: repeat delivery, bilateral salpingectomies Surgeon: Dr. Lanier Anesthesia: Spinal Anesthesiologist: Kwaku Mcgrath CRNA Description of the procedure: The patient was taken to the operating room where spinal anesthesia was induced. She was then prepped and draped in the lithotomy position in the standard surgical fashion. Attention was then turned to the abdomen. A Pfannestiel skin incision was made following the old skin incision. The incision was carried through the subcutan eous tissue. The fascia was easily identified and incised in the mildline. The fascial incision was extended laterally using sharp dissection. The rectus muscles were noted to be rather thick with the fascia densely adherent but able to be dissected away without any difficulty. The superior fascia was tented up with Sky clamps. The fascia was dissected off the underlying rectus muscles and again the tissue was thick but able to be dissected away with electrocautery. The peritoneum was entered sharply with electrocautery. Care was taken to enter the peritoneum in an avascular plane and a thin plane that allowed for visualization of bowel and bladder. Upon entering both the bowel and the bladder were examined and were intact. The bladder was slightly adherent to the lower uterine segment so a bladder flap was created. A large Ronn retractor was placed. The retractor was attempted to be placed twice but it did not stay in place. For this reason, a bladder blade and a Stroud retractor were placed to allow for visualization of the lower uterine segment. The lower uterine segment was incised in a low transverse fashion. The uterine incision was extended bluntly. Prior to rupturing the membranes meconium was noted and the lamination machine operator was alerted of the presence of meconium. The membranes were ruptured and again meconium was noted. The head was delivered. A loose nuchal cord was noted and this was reduced prior to delivering the rest of the . The shoulders delivered without any difficulty followed by the rest of the . The cord was clamped and cut and the infant was handed off to the attending pediatric staff. The placenta was delivered by expression and appeared intact. After the placenta delivered a 4 x 3 cm clot appeared consistent with the clinical history of placental abruption. There were trailing membranes that had a greenish appearance consistent with meconium staining. These membranes were removed with great care using a ring forcep to prevent having the membranes left behind. The patient's abdominal cavity felt warm so I asked the patient's temperature to be checked and it was normal. The uterus was cleared of all clots and debris. The large Ronn retractor was placed in the abdomen again and it did stay in place. The uterine incision was closed with an 0-vicryl suture. A second layer was placed for additional hemostasis. In addition to placing a second layer of suture several interrupted sutures of 0-vicryl were placed for additional hemostasis. A couple of 2-0 vicryl sutures were placed on the right side of the incision f.or additional hemostasis. Finally, slow oozing was noted and Gabriel was placed over the incision. The large Ronn retractor was removed from the abdomen. The uterine incision was reinspected and hemostasis was adequate. The left fallopian tube was identified by following it to the fimbriated end. The left fallopian tube was cut along the mesosalpinx all the way to the cornual region. Hemostasis was adequate. The same procedure was repeated on the right. Hemostasis was adequate. The subfascial tissues were inspected and made hemostatic with electrocautery. Several piercing vessels were noted to be bleeding on the rectus muscles and these were made hemostatic with a combination of electrocautery and 2-0 vicryl. The rectus muscles were reapproximated in the midline. The fascia was reapproximated with 1-0 vicryl. Gabriel was placed on the right side of the incision for slow oozing since several sutures had already been placed in this area. The subcutaneous tissue was copiously irrigated and made hemostatic with electrocautery. A 2-0 vicryl figure of eight suture was placed in the subcutaneous tissue, on the inferior aspect, for additional hemostasis. The skin incision was closed with 3-0 monocryl on a [place] needle. Tatum palma was placed over the incision. A dressing was placed on the incision. All sponge, lap, and needle counts were correct. The patient tolerated the procedure well. She was transferred to the recovery room in stable condition. EBL: 1000 mL Complications: none Specimens: placenta, fallopian tubes History for MU Definition: * The number of deliveries resulting in a live the patient experienced prior to current hospitalization * The previous delivery of live twins or any live multiple gestation is considered one live event. *If primagravida or nulliparous is documented select zero for the number of previous live births. Live Events: 3
--- NOTE | 2019-06-15 12:28 | ANES ---
Post Anesthesia Discharge - Transfer of Care Transfer of Care handoff given to nurse: Yes - Discharge from PACU Discharge from PACU when meets criteria: Yes
--- NOTE | 2019-06-15 12:29 | ANES ---
Post Anesthesia Assessment - Vital Signs Vitals: Last Vital Signs Temp 36.2 C 06/15/19 12:05 Pulse 80 06/15/19 12:25 Resp 14 06/15/19 12:25 BP 160/90 H 06/15/19 12:25 Pulse Ox 97 06/15/19 12:25 Airway Patency: Normal - Mental Status Level Of Consciousness: Awake - Pain Level Pain Score: 8 - N/V Assessment Nausea/Vomiting Presence: None Dehydration:: No - Additional Notes Comments:: pain being treated with IV narcotics
[2019-06-15] MEDS ORDERED: HYDROmorphone HCL 1 MG/ML DISP.SYRIN IV ONE (12:49)
[2019-06-15] MEDS ORDERED: ALPRAZolam 0.5 MG TABLET PO ONE (12:50)
[2019-06-15] MEDS ORDERED: HYDROmorphone HCL IN 0.9% NACL 50 ML CARTRIDGE IV PRN (13:42)
[2019-06-15] MEDS ORDERED: NALOXONE HCL 1 MG/1 ML SYRG IV PRN (13:42)
[2019-06-15] MEDS ORDERED: diphenhydrAMINE HCL 50 MG/ML VIAL IV PRN (13:42)
[2019-06-15] MEDS ORDERED: RHO(D) IMMUNE GLOBULIN 1,500 UNIT SYRINGE IM ONE (16:43)
[2019-06-15] MEDS: DOCUSATE SODIUM 100 MG CAPSULE PO SCH (20:18)
[2019-06-16] MEDS ORDERED: oxyCODONE HCL/ACETAMINOPHEN 1 TAB TABLET PO PRN ×2 (05:37→11:22)
[2019-06-16] MEDS ORDERED: ceFAZolin SODIUM 1 GM VIAL IV PRN (06:00)
[2019-06-16] MEDS: SIMETHICONE 80 MG TAB.CHEW PO PRN ×2 (06:01→23:11)
[2019-06-16 06:17] LABS: Hematocrit 25.7 % (37.0-47.0); Hemoglobin 8.3 gm/dL (12.5-16.0); Mean Cell Volume 78.6 fl (78-100); Mean Corpuscular Hemoglobin 25.4 pg (27-31); Mean Corpuscular Hgb Conc 32.3 g/dl (32-36); Mean Platelet Volume 8.9 fl (8-12.5); Neutrophil # 14.1 K/mm3 (1.3-6.0); Neutrophil % 74.5 % (42-75.0); Platelet Count 315 K/mm3 (150-450); Red Blood Count 3.27 M/mm3 (4.2-5.4); Red Cell Distribution Width 13.7 % (11.5-14.0)
[2019-06-16] MEDS ORDERED: HYDROmorphone HCL 2 MG TABLET PO PRN (07:43)
--- NOTE | 2019-06-16 08:01 | PN ---
Subjective - Date and Time Seen Date: 06/16/19 Time: 07:48 Subjective Narrative: The patient reports pain and anxiety Objective Objective Narrative: See vital signs - Review of Systems Generalized/Overall Review: Reports: No Symptoms Reported Misc: All systems neg except as marked - Vitals Vitals: Last Vital Signs Temp 37.1 C 06/16/19 02:40 Pulse 80 06/16/19 02:40 Resp 20 06/16/19 02:40 BP 125/70 06/16/19 02:40 Pulse Ox 97 06/15/19 22:30 - Abnormal Lab Findings Abnormal Lab Findings: Abnormal Lab Results 06/15/19 06/15/19 06/16/19 Range/Units 07:00 07:00 06:05 WBC 19.0 H D (4.0-10.5) K/mm3 RBC 3.27 L (4.2-5.4) M/mm3 Hgb 8.3 L (12.5-16.0) gm/dL Hct 25.7 L (37.0-47.0) % MCH 25.4 L (27-31) pg Immature Gran % (Auto) 0.50 H (0.001-0.429) % Immature Gran # (Auto) 0.10 H (0.000-0.0310) K/mm3 Lymphocytes % 17.3 L (20-51) % Neutrophils # 14.1 H (1.3-6.0) K/mm3 Monocytes # 1.3 H (0.0-1.0) k/mm3 U Random Total Protein 37.6 H (0-12) mg/dL U Speer Prot/Creat Ratio 606 H (0-199) mg/gm Urine Opiates Screen Positive H (NEGATIVE) U Benzodiazepines Scrn Positive H (NEGATIVE) - Exam Constitutional: Present: Alert, Oriented x3, Cooperative, No distress ENT Exam: Present: hearing grossly normal Abdomen: Present: soft, nontender, nondistended - dressing c/d/i /Rectal: Present: Exam deferred Extremity: Present: non-tender, no calf tenderness Skin Exam: Present: normal color, warm/dry, no cyanosis Appearance: Present: appropriate appearance Eye contact: Present: cooperative Thoughts: Present: normal thought pattern Cauti Physician Documentation - Urinary Catheter Management Urethral ([place]) Urethral Indwelling: No Date of Insertion: 06/15/19 Time of Insertion: 10:15 Date of Removal: 06/15/19 Time of Removal: 22:30 Assessment/Plan Plan Narrative: POD 1 s/p repeat delivery The patient has a lot of anxiety that is contributing to her pain. 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 The patient is counseled that oral pain medications are a lot more effective for control of pain and that is why her DRAGLINE OPERATOR HELPER was discontinued. Given that she was taking percocet towards the end of her of an unknown source and that her pain is not controlled will switch to dilaudid. There is no record of a percocet Rx on the CIRCUIT BOARD REPAIR TECHNICIAN and the patient's UDS was positive for opiates. Dilaudid 2mg PO Q3H PRN started The patient reports she has a lot of anxiety since her last child from SIDS although she did mention the baby was also found to have pulmonary hypertension. She reports that the siblings witnessed the passing of her child and for this reason they are in therapy. I explained to the patient that I can certainly prescribe her benzos while inpatient and she reports to me that she had a recent script for benzos and that she has enough when she goes home. 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 The patient was on prozac 80mg prior to per report. I offered the patient to restart her SSRI at a lower dose but she declines. She reports she has an DIVISION MERCHANDISE MANAGER online that prescribes her medication and that she will get back on her medication once she is discharged. In addition, she reports she goes to therapy twice a month. I have recommended the patient that she go to therapy on a weekly basis as that is more likely to be effective. The patient is a lot more calm after our discussion. The patient's blood pressures are mostly in the mild range consistent with her diagnosis of pre-eclampsia without severe features. Her hemoglobin is essentially stable this morning Recheck CMP due to hypokalemia
[2019-06-16 08:02] LABS: Albumin * 2.2 gm/dl (3.4-5.0); Anion Gap 12.9 mmol/L (6.8-13.8); BUN/Creatinine Ratio 7.4 (9.0-21.6); Bilirubin, Total 0.4 mg/dL (0.0-1.1); Ca. Corrected For Albumin 9.2 mg/dL (8.4-10.2); Calcium * 8.1 mg/dL (7.9-10.9); Carbon Dioxide 26.7 mmol/L (24-32.6); Potassium 3.6 mmol/L (3.4-4.6)
[2019-06-16] MEDS: DOCUSATE SODIUM 100 MG CAPSULE PO SCH ×2 (08:34→21:15)
[2019-06-16] MEDS: PRENATAL VITS96/IRON FUM/FOLIC 1 TAB TABLET PO SCH (08:34)
--- NOTE | 2019-06-16 08:36 | PN ---
Progess Note - Interim Date: 06/16/19 Time: 08:35 Narrative: 06/16/19 08:35 Hypokalemia resolved so likely the initial result was a lab error
[2019-06-16] MEDS ORDERED: ALPRAZolam 1 MG TABLET PO SCH (09:00)
[2019-06-16] MEDS: oxyCODONE HCL/ACETAMINOPHEN 1 TAB TABLET PO PRN ×4 (11:55→23:11)
[2019-06-16] MEDS: diphenhydrAMINE HCL 25 MG CAPSULE PO PRN (21:15)
[2019-06-16] MEDS: ALPRAZolam 0.5 MG TABLET PO PRN (21:15)
[2019-06-17] MEDS: oxyCODONE HCL/ACETAMINOPHEN 1 TAB TABLET PO PRN ×6 (03:07→21:14)
[2019-06-17] MEDS: PRENATAL VITS96/IRON FUM/FOLIC 1 TAB TABLET PO SCH (08:00)
[2019-06-17] MEDS: DOCUSATE SODIUM 100 MG CAPSULE PO SCH ×2 (08:00→21:08)
--- NOTE | 2019-06-17 10:22 | PN ---
Subjective - Date and Time Seen Date: 06/17/19 Time: 10:20 Subjective Narrative: The patient reports pain and anxiety Objective Objective Narrative: See vital signs - Review of Systems Generalized/Overall Review: Reports: No Symptoms Reported Misc: All systems neg except as marked - Vitals Vitals: Last Vital Signs Temp 36.7 C 06/17/19 08:00 Pulse 83 06/17/19 08:00 Resp 20 06/17/19 08:00 BP 135/77 06/17/19 08:00 Pulse Ox 98 06/17/19 08:00 - Exam Constitutional: Present: Alert, Oriented x3, Cooperative, No distress ENT Exam: Present: hearing grossly normal Abdomen: Present: soft, nontender, nondistended - incision c/d/i /Rectal: Present: Exam deferred Extremity: Present: non-tender, no calf tenderness Skin Exam: Present: normal color, warm/dry, no cyanosis Appearance: Present: appropriate appearance Eye contact: Present: cooperative Thoughts: Present: normal thought pattern Cauti Physician Documentation - Urinary Catheter Management Urethral ([place]) Urethral Indwelling: No Date of Insertion: 06/15/19 Time of Insertion: 10:15 Date of Removal: 06/15/19 Time of Removal: 22:30 Assessment/Plan Plan Narrative: POD 2 s/p repeat delivery The patient complains of left kidney pain. Obtain UC Otherwise doing well Discharge tomorrow - Problems/Diagnosis (1) delivery delivered Problem: Acute (2) Status post bilateral salpingectomy Problem: Acute (3) Pre-eclampsia Problem: Acute (4) Hypokalemia Problem: Acute (5) Anxiety Problem: Acute (6) Narcotic addiction Problem: Chronic (7) Chronic abdominal pain Problem: Acute
[2019-06-17] MEDS: ALPRAZolam 0.5 MG TABLET PO PRN (21:13)
[2019-06-17] MEDS: diphenhydrAMINE HCL 25 MG CAPSULE PO PRN (22:42)
[2019-06-18] MEDS: oxyCODONE HCL/ACETAMINOPHEN 1 TAB TABLET PO PRN ×5 (00:19→13:09)
[2019-06-18] MEDS: DOCUSATE SODIUM 100 MG CAPSULE PO SCH ×2 (06:45→11:28)
[2019-06-18] MEDS: PRENATAL VITS96/IRON FUM/FOLIC 1 TAB TABLET PO SCH ×2 (06:45→11:28)
[2019-06-18 07:06] VITALS: BP 140/84
--- NOTE | 2019-06-18 09:03 | PN ---
Subjective - Date and Time Seen Date: 06/18/19 Time: 09:01 Subjective Narrative: The patient reports pain and anxiety Objective Objective Narrative: See vital signs - Review of Systems Generalized/Overall Review: Reports: No Symptoms Reported Misc: All systems neg except as marked - Vitals Vitals: Last Vital Signs Temp 36.4 C 06/18/19 07:05 Pulse 82 06/18/19 07:05 Resp 16 06/18/19 07:05 BP 140/84 H 06/18/19 07:05 Pulse Ox 96 06/18/19 01:00 - Exam Constitutional: Present: Alert, Oriented x3, Cooperative, No distress ENT Exam: Present: hearing grossly normal Abdomen: Present: soft, nontender, nondistended - incision c/d/i Extremity: Present: non-tender, no calf tenderness Skin Exam: Present: normal color, warm/dry, no cyanosis Appearance: Present: appropriate appearance Eye contact: Present: cooperative Thoughts: Present: normal thought pattern Cauti Physician Documentation - Urinary Catheter Management Urethral ([place]) Urethral Indwelling: No Date of Insertion: 06/15/19 Time of Insertion: 10:15 Date of Removal: 06/15/19 Time of Removal: 22:30 Assessment/Plan Plan Narrative: POD 3 s/p delivery Doing well Pt has a UTI: will send antibiotic Rx Discharge today Follow-up in 2 weeks or sooner for any other concerns - Problems/Diagnosis (1) delivery delivered Problem: Acute (2) Status post bilateral salpingectomy Problem: Acute (3) Pre-eclampsia Problem: Acute (4) Hypokalemia Problem: Acute (5) Anxiety Problem: Acute (6) Narcotic addiction Problem: Chronic (7) Chronic abdominal pain Problem: Acute
[2019-06-18] MEDS: SIMETHICONE 80 MG TAB.CHEW PO PRN (11:31)
== END 2019-06-18 13:55 | disposition home or self-care (01) | DRG 784 ==
LOC: OBCLINIC 04:39 → OB 09:05
PROVIDERS: ADMIT Obstetrics & Gynecology; ATTEND Obstetrics & Gynecology
CPT/HCPCS: 36415; 59025; 76815; 80053; 80307; 82570; 84155; 84156; 85025; 85384; 85460; 85610; 85730; 86850; 86870; 87077; 87086; 87186; 88302; 88307; J2405; J2790